=== PATIENT | male | born 1990 | race Caucasian/White ===

== ENCOUNTER 2018-07-22 20:59 | Emergency (ER) | payer OTHER, SELFPAY ==
[2018-07-22 21:00] VITALS: BP 128/72; PULSE 82; RESP 18; TEMP 36.4; O2SAT 97; BMI 24.9
--- NOTE | 2018-07-22 21:26 | ED.ABDPAIN ---
HPI - Abdominal Pain General Chief Complaint: Abdominal Pain Stated Complaint: abd pain, vomiting, diarrhea Time Seen by Provider: 07/22/18 21:26 Source: patient Mode of arrival: ambulatory Limitations: no limitations History of Present Illness HPI narrative: 27-year-old male here for evaluation of approximately 3 days of nausea vomiting and diarrhea. He also states he has had accompanying abdominal pain. No urinary symptoms. Has not tried anything for prior to arrival. No recent antibiotics. 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 and recently traveled home from there but that has been several days ago. No blood in his stool or in the vomit. No fevers. No prior abdominal surgeries Related Data Previous Rx's Medication Instructions Recorded ciprofloxacin HCl 500 mg PO BID 10 Days #20 tab 07/22/18 hydrocodone-acetaminophen [[place]] 1 tab PO Q4-6H PRN #10 tab 07/22/18 metronidazole [Flagyl] 500 mg PO TID 10 Days #30 tab 07/22/18 ondansetron 4 mg PO Q6-8H PRN #10 tab 07/22/18 Allergies Allergy/AdvReac Type Severity Reaction Status Date / Time No Known Drug Allergies Allergy Verified 07/22/18 21:06 Review of Systems Constitutional Denies fever(s) and Denies headache(s) ENT Ears, Nose, Mouth, and Throat: Denies headache(s) Cardiovascular Denies chest pain and Denies dyspnea Respiratory Denies dyspnea Gastrointestinal Gastrointestinal: Reports abdominal pain, Reports diarrhea, Reports nausea and Reports vomiting Genitourinary Denies dysuria Musculoskeletal Denies myalgias and Denies arthralgias Integumentary/Breasts Denies lesions and Denies rash Neurologic Denies headache(s) Hematologic/Lymphatic Comments: Not on anticoagulation [facility] Medical History Healthy adult (Acute) Surgical History No pertinent past surgical history (Acute) Social History Smoking Status: Current every day smoker Exam Initial Vital Signs Initial Vital Signs: Vital Signs Temperature 97.5 F L 07/22/18 21:00 Pulse Rate 82 07/22/18 21:00 Respiratory Rate 18 07/22/18 21:00 Blood Pressure 128/72 07/22/18 21:00 Pulse Oximetry 97 07/22/18 21:00 Const General: cooperative, healthy appearing, comfortable, well developed, well groomed and No acute distress Orientation: alert, awake and oriented x3 HENMT Head: normal to inspection and normocephalic Resp Effort & Inspection: normal respiratory effort Auscultation: clear to auscultation bilaterally Cardio Rate: regular rate Rhythm: regular rhythm GI Inspection: non-distended Palpation: soft, No firm, No guarding and tender (Diffusely tender without rebound or guarding) Back/Spine/Pelvis Back: No CVA tenderness Skin Lesions: no lesions Rashes: no rashes Neuro General: alert, awake and oriented x3 Extrem General: normal to inspection and capillary refill normal Psych Appearance: grossly normal and well kempt Course Orders Ordered: ED Orders 07/22/18 21:38 Complete Blood Count AUTO DIFF Stat Comprehensive Metabolic Panel Stat Lipase Stat 07/22/18 21:39 CT abdomen pelvis w con Stat Discontinued Medications Hydrocodone Bitart/Acetaminophen (Vicodin Prepack) 1 bottle MISC SEEINSTR ONE Stop: 07/22/18 23:38 Last Admin: 07/22/18 23:57 Dose: 1 bottle Ciprofloxacin (Cipro) 500 mg PO NOW ONE Stop: 07/22/18 23:38 Last Admin: 07/22/18 23:56 Dose: 500 mg Hydromorphone HCl (Dilaudid) 1 mg IM Q4H PRN PRN Reason: Pain, Severe (7-10) Last Admin: 07/22/18 22:32 Dose: 1 mg Hydromorphone HCl (Dilaudid) 0.5 mg IV NOW ONE Stop: 07/23/18 00:03 Last Admin: 07/23/18 00:10 Dose: 0.5 mg Sodium Chloride (Normal Saline 0.9%) 1,000 mls @ 1,000 mls/hr IV BOLUS ONE Stop: 07/22/18 22:37 Last Infusion: 07/23/18 00:12 Dose: 0 mls/hr Admin: 07/22/18 21:49 Dose: 1,000 mls/hr Metronidazole (Metronidazole) 500 mg PO NOW ONE Stop: 07/22/18 23:38 Last Admin: 07/22/18 23:57 Dose: 500 mg Morphine Sulfate (Morphine) 4 mg IV NOW ONE Stop: 07/22/18 21:39 Last Admin: 07/22/18 21:49 Dose: 4 mg Ondansetron HCl (Zofran) 4 mg IV NOW ONE Stop: 07/22/18 21:39 Last Admin: 07/22/18 21:49 Dose: 4 mg Ondansetron HCl (Zofran Odt Prepack) 1 bottle MISC SEEINSTR ONE Stop: 07/22/18 23:38 Last Admin: 07/22/18 23:57 Dose: 1 bottle Ondansetron HCl (Zofran) 4 mg IV NOW ONE Stop: 07/22/18 23:53 Last Admin: 07/22/18 23:56 Dose: 4 mg Vital Signs - 8 hr 07/22/18 21:00 07/23/18 00:21 Temperature 97.5 F L 98.2 F Pulse Rate 82 75 Respiratory Rate 18 19 Blood Pressure 128/72 124/75 Pulse Oximetry 97 98 MDM - Abdominal Pain Lab Data Attestation: I reviewed the patient's lab results. Result diagrams: 07/22/18 21:38 07/22/18 21:38 Lab Results 07/22/18 07/22/18 Range/Units 21:38 21:38 WBC 12.4 H (4.5-11.0) X10^3/uL RBC 4.90 (4.5-5.9) X10^6/uL Hgb 15.1 (13.5-17.5) g/dL Hct 44.5 (41-53) % MCV 90.8 (80-100) fL MCH 30.8 (26-34) PG MCHC 33.9 (30-36) % RDW 13.1 (11.6-14.8) % Plt Count 284 (150-400) X10^3/uL Neut % (Auto) 81.0 H (50-75) % Lymph % (Auto) 13.0 L (25-40) % [place] % (Auto) 4.6 (3-14) % Eos % (Auto) 1.1 L (2-4) % Baso % (Auto) 0.3 (0-2) % Neut # (Auto) 99382 H (6891-6313) /uL Sodium 143 (137-145) mmol/L Potassium 4.3 (3.4-5.1) mmol/L Chloride 103 (98-107) mmol/L Carbon Dioxide 28 (22-32) mmol/L BUN 11 (9-20) mg/dL Creatinine 1.00 (0.66-1.25) mg/dL Estimated GFR > 60.0 (>60) mL/min BUN/Creatinine Ratio 11.0 (6-22) Glucose 103 H (70-100) mg/dL Calcium 9.7 (8.4-10.2) mg/dL Total Bilirubin 0.8 (0.2-1.3) mg/dL AST 55 (17-59) IU/L ALT 93 H (21-72) IU/L Alkaline Phosphatase 51 (38-126) U/L Total Protein 8.0 (6.3-8.2) g/dL Albumin 4.8 (3.5-5.0) g/dL Globulin 3.2 (1.7-4.1) g/dL Albumin/Globulin Ratio 1.5 (1.0-2.8) Lipase 103 (23-300) U/L Imaging Data CT scan - abdomen: Radiologist's impression: Colitis involving at least the transverse and descending colon. Slight intrapelvic fluid. Mesenteric adenopathy. Borderline splenomegaly MDM Narrative Medical decision making narrative: Patient is a relatively benign abdominal exam. Certainly not a surgical/acute abdomen. Labs reassuring. CT scan shows a colitis which does fit with his presenting picture. He is tolerating oral intake. Given the fact that he has had symptoms for the past several days and the fact that it is transverse and descending colon will send home with antibiotics. Also sent home with nausea medication. Also sent home with a very short course of pain medication given the discomfort that he was having. Patient was given return precautions. He expressed understanding and agreement with plan. Discharge Plan Departure Patient Disposition: Home Clinical Impression: Colitis Discharge Date/Time: 07/23/18 00:23 Interventions: ED Discharge Assessment Last Done: 07/23/18 00:21 Instructions: DI for Colitis Activity Restrictions/Additional Instructions: I recommend you take all of your medications as directed. You were given her 1st dose of antibiotics here in the emergency department. Return to the emergency department for any new or worsening symptoms Prescriptions: New hydrocodone-acetaminophen [[place]] 5-325 mg tablet 1 tab PO Q4-6H PRN (Reason: pain) Qty: 10 RF: 0 metronidazole [Flagyl] 500 mg tablet 500 mg PO TID 10 Days Qty: 30 RF: 0 ciprofloxacin HCl 500 mg tablet 500 mg PO BID 10 Days Qty: 20 RF: 0 ondansetron 4 mg tablet,disintegrating 4 mg PO Q6-8H PRN (Reason: nausea and vomiting) Qty: 10 RF: 0
--- NOTE | 2018-07-22 21:39 | DI.CT.S_ITS ---
PROCEDURE: CT ABDOMEN PELVIS W CON INDICATIONS: abdominal pain TECHNIQUE: After the administration of intravenous contrast, 5 mm thick sections acquired from the diaphragm to the symphysis. 5 mm coronal and sagittal reformats were acquired. For radiation dose reduction, the following was used: automated exposure control, adjustment of mA and/or kV according to patient size. COMPARISON: None. FINDINGS: Image quality: Excellent. ABDOMEN: Lung bases: Lung bases are clear. Heart size is normal. Solid organs: No focal hepatic mass lesions identified. There is mild focal fatty infiltration in the anterior left hepatic lobe. Gallbladder appears within normal limits without calcified gallstones. Biliary system is non dilated. Pancreas enhances normally. Spleen is normal in size and enhancement. No adrenal nodules. Kidneys demonstrate normal size and enhancement, without hydronephrosis. Peritoneum and bowel: Small bowel loops demonstrate normal wall thickness and caliber. The appendix is normal in appearance. There is mild segmental wall thickening involving the transverse colon as well as milder thickening involving the descending and sigmoid colon. Findings are consistent with a nonspecific colitis. There is a small amount of free fluid in the pelvis. No intraperitoneal free air. Nodes and vessels: No retroperitoneal or mesenteric adenopathy by size criteria. Aorta and inferior vena cava are normal in size. Miscellaneous: No ventral hernias. PELVIS: Genitourinary: Bladder wall thickness is normal. Miscellaneous: No inguinal hernias or adenopathy. Bones: No suspicious bony lesions. No vertebral body compression fractures. IMPRESSION: 1. Segmental wall thickening involving the transverse, descending and sigmoid colon consistent with a nonspecific colitis, likely infectious or inflammatory. 2. Small amount of pelvic free fluid is likely reactive. Dictated by: Andry Santiago M.D. on 07/23/2018 at 9:32 Approved by: Andry Santiago M.D. on 07/23/2018 at 9:44
[2018-07-22 21:48] LABS: Add Manual Diff / Slide Review NO; Basophils Percent Auto 0.3 % (0-2); Eosinophils Percent Auto 1.1 % (2-4); Hematocrit 44.5 % (41-53); Hemoglobin 15.1 g/dL (13.5-17.5); Mean Corpuscular HGB Conc 33.9 % (30-36); Mean Corpuscular Hemoglobin 30.8 PG (26-34); Mean Corpuscular Volume 90.8 fL (80-100); Monocytes Percent Auto 4.6 % (3-14); Neutrophils Absolute Auto 10100 /uL (1500-7000); Platelet Count 284 X10^3/uL (150-400); Red Cell Distribution Width 13.1 % (11.6-14.8); White Blood Cell Count 12.4 X10^3/uL (4.5-11.0)
[2018-07-22] MEDS: MORPHINE 4 MG/ML INJ IV (21:49)
[2018-07-22] MEDS: SODIUM CHLORIDE 0.9% 1,000 ML 1000 ML IV (21:49)
[2018-07-22] MEDS: ONDANSETRON 4 MG/2 ML INJ IV ×2 (21:49→23:56)
[2018-07-22 21:56] LABS: Alanine Aminotransferase 93 IU/L (21-72); Albumin 4.8 g/dL (3.5-5.0); Albumin Globulin Ratio 1.5 (1.0-2.8); Alkaline Phosphatase 51 U/L (38-126); Aspartate Aminotransferase 55 IU/L (17-59); Bilirubin Total 0.8 mg/dL (0.2-1.3); Blood Urea Nitrogen 11 mg/dL (9-20); Calcium 9.7 mg/dL (8.4-10.2); Carbon Dioxide 28 mmol/L (22-32); Chloride 103 mmol/L (98-107); Estimated Glomerular Filt Rate > 60.0 mL/min (>60); Globulin 3.2 g/dL (1.7-4.1); Glucose 103 mg/dL (70-100); HEMOLYSIS 39 (0-50); Lipase 103 U/L (23-300); Potassium 4.3 mmol/L (3.4-5.1); Sodium 143 mmol/L (137-145)
[2018-07-22] MEDS: HYDROMORPHONE 2 MG INJ 1 MG IM (22:32)
[2018-07-22] MEDS: CIPROFLOXACIN 500 MG TABLET PO (23:56)
[2018-07-22] MEDS: ONDANSETRON 4 MG ODT PREPACK 1 BOTTLE MISC (23:57)
[2018-07-22] MEDS: metroNIDAZOLE 250 MG TABLET 500 MG PO (23:57)
[2018-07-22] MEDS: HYDROCODONE/ACET 5/325 PREPACK 1 BOTTLE MISC (23:57)
[2018-07-23] MEDS: HYDROMORPHONE 0.5 MG INJ IV (00:10)
[2018-07-23 00:21] VITALS: BP 124/75; PULSE 75; RESP 19; TEMP 36.8; O2SAT 98
== END 2018-07-23 00:23 | disposition home or self-care (01) ==
PROVIDERS: Emergency Provider Emergency Medicine
DX: K52.9 Noninfective gastroenteritis and colitis, unspecified (principal)
CPT/HCPCS: 36591; 74177; 80053; 83690; 85025; 96361; 96372; 96374; 96375; 96376; 99283; 99285; J1170; J2270; J2405

== ENCOUNTER 2018-07-26 20:30 | Emergency (ER) | payer OTHER, SELFPAY ==
[2018-07-26 20:41] VITALS: BP 144/78; PULSE 71; RESP 14; TEMP 36.5; O2SAT 98; BMI 24.9
--- NOTE | 2018-07-26 20:53 | ED.ABDPAIN ---
HPI - Abdominal Pain General Chief Complaint: Abdominal Pain Stated Complaint: ABD PAIN Time Seen by Provider: 07/26/18 20:35 Source: patient and family Mode of arrival: ambulatory Limitations: no limitations History of Present Illness HPI narrative: 27-year-old male, nonsmoker and otherwise healthy presents with his mother due to ongoing pain after recent diagnosis of colitis. The patient had had nausea, vomiting and diarrhea and presented to our emergency department. He had labs demonstrating a slightly elevated white blood cell count and a CT confirming colitis. He was placed on antibiotics and given a small number of hydrocodone and Zofran. He feels much better when he is able to take pain medicine and he ran out earlier today. Since then his pain has been slowly increasing. He denies fever or shaking chills. He has nausea but denies any ongoing vomiting. He is not dizzy nor weak or lightheaded. He was doing well until he ran out of his pain meds. He is currently on leave from [facility] and plans to fly back on Sunday where he states he has plenty of access to appropriate healthcare providers MD complaint: abdominal pain Onset (ago): day(s) Pain Consistency: constant Location: LLQ Severity: moderate Quality: cramping and aching Radiation: none Migration to: no migration Relieving factors: rest Exacerbating factors: movement Associated symptoms: nausea, vomiting and diarrhea Related Data Previous Rx's Medication Instructions Recorded ciprofloxacin HCl 500 mg PO BID 10 Days #20 tab 07/22/18 hydrocodone-acetaminophen [[place]] 1 tab PO Q4-6H PRN #10 tab 07/22/18 metronidazole [Flagyl] 500 mg PO TID 10 Days #30 tab 07/22/18 ondansetron 4 mg PO Q6-8H PRN #10 tab 07/22/18 hydrocodone-acetaminophen 1 tab PO Q4-6H PRN #14 tab 07/26/18 ondansetron 4 mg PO TID-QID PRN #10 tab 07/26/18 Allergies Allergy/AdvReac Type Severity Reaction Status Date / Time No Known Drug Allergies Allergy Verified 07/22/18 21:06 Review of Systems Constitutional Denies chills, Denies fever(s), Denies lethargy and Denies weakness Eyes Denies change in vision, Denies eye discharge, Denies irritation and Denies loss of vision ENT Ears, Nose, Mouth, and Throat: Denies change in voice, Denies neck pain and Denies sore throat Cardiovascular Denies chest pain, Denies irregular heart rhythm, Denies lightheadedness, Denies palpitations, Denies dyspnea, Denies dyspnea on exertion and Denies orthopnea Respiratory Denies cough, Denies dyspnea, Denies dyspnea on exertion and Denies wheezing Gastrointestinal Gastrointestinal: Reports abdominal pain, Denies change in bowel habits, Denies diarrhea, Reports nausea and Denies vomiting Genitourinary Denies hematuria, Denies flank pain, Denies urinary incontinence and Denies urinary urgency Musculoskeletal Denies neck pain Integumentary/Breasts Denies pruritus, Denies erythema, Denies rash and Denies wounds Neurologic Denies confusion, Denies loss of vision and Denies weakness Psychiatric Denies anxiety, Denies confusion, Denies depression, Denies homicidal ideation and Denies suicidal ideation Endocrine Denies palpitations Hematologic/Lymphatic Denies easy bruising Allergic/Immunologic Denies wheezing [facility] Medical History Healthy adult (Acute) Surgical History No pertinent past surgical history (Acute) Social History Smoking Status: Current every day smoker Exam Narrative Exam Narrative: GEN: AOx3 and in mild distress EYES: Pupils are equal, round, and reactive to light and accommodation. Extraoccular muscles are intact bilaterally. There is no subconjunctival hemorrhage or exudate. CHEST: Lungs are clear to auscultation bilaterally and free of wheezes, rales, or rhonchi. Heart rate is regular rhythm, there are no murmurs, clicks, rubs, or gallops. There is no chest wall tenderness. ABD: Abdomen is soft and mildly tender in the left lower quadrant. There is no guarding or rebound. Bowel sounds are normal in all 4 quadrants. There is no mass or organomegaly. EXT: Full painless ROM of all extremities with no loss of sensation or strength. SKIN: Warm, pink, and dry. No erythema or rash Initial Vital Signs Initial Vital Signs: Vital Signs Temperature 97.7 F 07/26/18 20:41 Pulse Rate 71 07/26/18 20:41 Respiratory Rate 14 07/26/18 20:41 Blood Pressure 144/78 H 07/26/18 20:41 Pulse Oximetry 98 07/26/18 20:41 Course Orders Ordered: Discontinued Medications Hydrocodone Bitart/Acetaminophen (Vicodin Prepack) 1 bottle MISC SEEINSTR ONE Stop: 07/26/18 21:11 Last Admin: 07/26/18 21:21 Dose: 1 bottle Vital Signs - 8 hr 07/26/18 20:41 Temperature 97.7 F Pulse Rate 71 Respiratory Rate 14 Blood Pressure 144/78 H Pulse Oximetry 98 MDM - Abdominal Pain Differential Diagnosis Differential diagnosis: Likely abdominal pain, calculus of kidney, constipation, gastroenteritis and small bowel obstruction Medical Records Attestation: I reviewed the patient's medical records. MDM Narrative Medical decision making narrative: Multiple etiologies for patient's symptoms considered including: [ Flare due to lack of access to pain meds, abscess formation, perforation, thought less likely given stable vitals, and overall well-appearing patient. Colitis] Patient's symptoms improved or duration of stay with above-stated therapies. We did discuss repeat labs and imaging but patient states he was feeling quite well until ran out of pain meds. He understands he may return at any point for E repeat, more thorough evaluation Findings and discharge diagnosis discussed with patient/family followed by verbalization of understanding Return precautions discussed with patient/family whom verbalize understanding. Discharge Plan Departure Patient Disposition: Home Clinical Impression: Colitis Discharge Date/Time: 07/26/18 21:25 Interventions: ED Discharge Assessment Last Done: 07/26/18 21:24 Instructions: DI for Colitis Activity Restrictions/Additional Instructions: *You have been diagnosed with [ colitis] *What to do: *Take medications as directed including over the counter probiotics *Follow up with your primary care provider upon return to [facility], calling/emailing ahead of time may help speed the process *Return to ER if you should have any new, worsening or concerning symptoms, such as [ fever >101F, persistent vomiting despite use of meds, worsening pain despite use of pain meds, shaking chills, or other bothersome symptoms] Prescriptions: New hydrocodone-acetaminophen 5-325 mg tablet 1 tab PO Q4-6H PRN (Reason: pain) Qty: 14 RF: 0 ondansetron 4 mg tablet,disintegrating 4 mg PO TID-QID PRN (Reason: nausea and vomiting) Qty: 10 RF: 0 No Action hydrocodone-acetaminophen [[place]] 5-325 mg tablet 1 tab PO Q4-6H PRN (Reason: pain) Qty: 10 RF: 0 metronidazole [Flagyl] 500 mg tablet 500 mg PO TID 10 Days Qty: 30 RF: 0 ciprofloxacin HCl 500 mg tablet 500 mg PO BID 10 Days Qty: 20 RF: 0 ondansetron 4 mg tablet,disintegrating 4 mg PO Q6-8H PRN (Reason: nausea and vomiting) Qty: 10 RF: 0
[2018-07-26] MEDS: HYDROCODONE/ACET 5/325 PREPACK 1 BOTTLE MISC (21:21)
--- NOTE | 2018-07-27 03:10 | ED_ITS ---
HPI - Abdominal Pain General Chief Complaint: Abdominal Pain Stated Complaint: ABD PAIN Time Seen by Provider: 07/26/18 20:35 Source: patient and family Mode of arrival: ambulatory Limitations: no limitations History of Present Illness HPI narrative: 27-year-old male, nonsmoker and otherwise healthy presents with his mother due to ongoing pain after recent diagnosis of colitis. The patient had had nausea, vomiting and diarrhea and presented to our emergency department. He had labs demonstrating a slightly elevated white blood cell count and a CT confirming colitis. He was placed on antibiotics and given a small number of hydrocodone and Zofran. He feels much better when he is able to take pain medicine and he ran out earlier today. Since then his pain has been slowly increasing. He denies fever or shaking chills. He has nausea but denies any ongoing vomiting. He is not dizzy nor weak or lightheaded. He was doing well until he ran out of his pain meds. He is currently on leave from [facility] and plans to fly back on Sunday where he states he has plenty of access to appropriate healthcare providers MD complaint: abdominal pain Onset (ago): day(s) Pain Consistency: constant Location: LLQ Severity: moderate Quality: cramping and aching Radiation: none Migration to: no migration Relieving factors: rest Exacerbating factors: movement Associated symptoms: nausea, vomiting and diarrhea Related Data Previous Rx's Medication Instructions Recorded ciprofloxacin HCl 500 mg PO BID 10 Days #20 tab 07/22/18 hydrocodone-acetaminophen [[place]] 1 tab PO Q4-6H PRN #10 tab 07/22/18 metronidazole [Flagyl] 500 mg PO TID 10 Days #30 tab 07/22/18 ondansetron 4 mg PO Q6-8H PRN #10 tab 07/22/18 hydrocodone-acetaminophen 1 tab PO Q4-6H PRN #14 tab 07/26/18 ondansetron 4 mg PO TID-QID PRN #10 tab 07/26/18 Allergies Allergy/AdvReac Type Severity Reaction Status Date / Time No Known Drug Allergies Allergy Verified 07/22/18 21:06 Review of Systems Constitutional Denies chills, Denies fever(s), Denies lethargy and Denies weakness Eyes Denies change in vision, Denies eye discharge, Denies irritation and Denies loss of vision ENT Ears, Nose, Mouth, and Throat: Denies change in voice, Denies neck pain and Denies sore throat Cardiovascular Denies chest pain, Denies irregular heart rhythm, Denies lightheadedness, Denies palpitations, Denies dyspnea, Denies dyspnea on exertion and Denies orthopnea Respiratory Denies cough, Denies dyspnea, Denies dyspnea on exertion and Denies wheezing Gastrointestinal Gastrointestinal: Reports abdominal pain, Denies change in bowel habits, Denies diarrhea, Reports nausea and Denies vomiting Genitourinary Denies hematuria, Denies flank pain, Denies urinary incontinence and Denies urinary urgency Musculoskeletal Denies neck pain Integumentary/Breasts Denies pruritus, Denies erythema, Denies rash and Denies wounds Neurologic Denies confusion, Denies loss of vision and Denies weakness Psychiatric Denies anxiety, Denies confusion, Denies depression, Denies homicidal ideation and Denies suicidal ideation Endocrine Denies palpitations Hematologic/Lymphatic Denies easy bruising Allergic/Immunologic Denies wheezing [facility] Medical History Healthy adult (Acute) Surgical History No pertinent past surgical history (Acute) Social History Smoking Status: Current every day smoker Exam Narrative Exam Narrative: GEN: AOx3 and in mild distress EYES: Pupils are equal, round, and reactive to light and accommodation. Extraoccular muscles are intact bilaterally. There is no subconjunctival hemorrhage or exudate. CHEST: Lungs are clear to auscultation bilaterally and free of wheezes, rales, or rhonchi. Heart rate is regular rhythm, there are no murmurs, clicks, rubs, or gallops. There is no chest wall tenderness. ABD: Abdomen is soft and mildly tender in the left lower quadrant. There is no guarding or rebound. Bowel sounds are normal in all 4 quadrants. There is no mass or organomegaly. EXT: Full painless ROM of all extremities with no loss of sensation or strength. SKIN: Warm, pink, and dry. No erythema or rash Initial Vital Signs Initial Vital Signs: Vital Signs Temperature 97.7 F 07/26/18 20:41 Pulse Rate 71 07/26/18 20:41 Respiratory Rate 14 07/26/18 20:41 Blood Pressure 144/78 H 07/26/18 20:41 Pulse Oximetry 98 07/26/18 20:41 Course Orders Ordered: Discontinued Medications Hydrocodone Bitart/Acetaminophen (Vicodin Prepack) 1 bottle MISC SEEINSTR ONE Stop: 07/26/18 21:11 Last Admin: 07/26/18 21:21 Dose: 1 bottle Vital Signs - 8 hr 07/26/18 20:41 Temperature 97.7 F Pulse Rate 71 Respiratory Rate 14 Blood Pressure 144/78 H Pulse Oximetry 98 MDM - Abdominal Pain Differential Diagnosis Differential diagnosis: Likely abdominal pain, calculus of kidney, constipation , gastroenteritis and small bowel obstruction Medical Records Attestation: I reviewed the patient's medical records. MDM Narrative Medical decision making narrative: Multiple etiologies for patient's symptoms considered including: [ Flare due to lack of access to pain meds, abscess formation, perforation, thought less likely given stable vitals, and overall well-appearing patient. Colitis] Patient's symptoms improved or duration of stay with above-stated therapies. We did discuss repeat labs and imaging but patient states he was feeling quite well until ran out of pain meds. He understands he may return at any point for E repeat, more thorough evaluation Findings and discharge diagnosis discussed with patient/family followed by verbalization of understanding Return precautions discussed with patient/family whom verbalize understanding. Discharge Plan Departure Patient Disposition: Home Clinical Impression: Colitis Discharge Date/Time: 07/26/18 21:25 Interventions: ED Discharge Assessment Last Done: 07/26/18 21:24 Instructions: DI for Colitis Activity Restrictions/Additional Instructions: *You have been diagnosed with [ colitis] *What to do: *Take medications as directed including over the counter probiotics *Follow up with your primary care provider upon return to [facility], calling/emailing ahead of time may help speed the process *Return to ER if you should have any new, worsening or concerning symptoms , such as [ fever >101F, persistent vomiting despite use of meds, worsening pain despite use of pain meds, shaking chills, or other bothersome symptoms] Prescriptions: New hydrocodone-acetaminophen 5-325 mg tablet 1 tab PO Q4-6H PRN (Reason: pain) Qty: 14 RF: 0 ondansetron 4 mg tablet,disintegrating 4 mg PO TID-QID PRN (Reason: nausea and vomiting) Qty: 10 RF: 0 No Action hydrocodone-acetaminophen [[place]] 5-325 mg tablet 1 tab PO Q4-6H PRN (Reason: pain) Qty: 10 RF: 0 metronidazole [Flagyl] 500 mg tablet 500 mg PO TID 10 Days Qty: 30 RF: 0 ciprofloxacin HCl 500 mg tablet 500 mg PO BID 10 Days Qty: 20 RF: 0 ondansetron 4 mg tablet,disintegrating 4 mg PO Q6-8H PRN (Reason: nausea and vomiting) Qty: 10 RF: 0
== END 2018-07-26 21:25 | disposition home or self-care (01) ==
PROVIDERS: Emergency Provider Emergency Medicine
DX: K52.9 Noninfective gastroenteritis and colitis, unspecified (principal)
CPT/HCPCS: 99282; 99283

== ENCOUNTER 2018-07-27 07:32 | Emergency (ER) | payer OTHER, SELFPAY ==
[2018-07-27 07:41] VITALS: BP 150/76; PULSE 77; RESP 13; TEMP 36.6; O2SAT 98
--- NOTE | 2018-07-27 07:51 | ED.ABDPAIN ---
HPI - Abdominal Pain General Chief Complaint: Abdominal Pain Stated Complaint: ABDOMINAL PAIN Time Seen by Provider: 07/27/18 07:44 Source: patient Mode of arrival: ambulatory Limitations: no limitations History of Present Illness HPI narrative: Patient is a 27-year-old male presenting with abdominal pain. He was seen evaluated here on 07/22/2018 where his blood work and a CT diagnosed with colitis. He was placed on Cipro and Flagyl. He was doing okay until last evening where his pain got worse. He again came to the emergency department was given pain medication. He has been unable to keep his antibiotics down. his pain has gotten significantly worse. 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 However his pain is quite severe. He has had shaking sweats but mostly thought due to pain. MD complaint: abdominal pain Related Data Previous Rx's Medication Instructions Recorded ciprofloxacin HCl 500 mg PO BID 10 Days #20 tab 07/22/18 hydrocodone-acetaminophen [[place]] 1 tab PO Q4-6H PRN #10 tab 07/22/18 metronidazole [Flagyl] 500 mg PO TID 10 Days #30 tab 07/22/18 ondansetron 4 mg PO Q6-8H PRN #10 tab 07/22/18 hydrocodone-acetaminophen 1 tab PO Q4-6H PRN #14 tab 07/26/18 ondansetron 4 mg PO TID-QID PRN #10 tab 07/26/18 meloxicam [Mobic] 7.5 mg PO DAILY #30 tab 07/27/18 ondansetron 4 mg PO Q6-8H PRN #14 tab 07/27/18 Allergies Allergy/AdvReac Type Severity Reaction Status Date / Time No Known Drug Allergies Allergy Verified 07/22/18 21:06 Review of Systems Review of Systems GENERAL: Denies chills, fatigue, malaise, fever, sweats, travel HEENT: Denies sinus pain, ear pain, sore throat, difficulty swallowing, neck pain RESPIRATORY: Denies dyspnea, cough, wheezing, hemoptysis, sputum. CARDIOVASCULAR: Denies chest pain, palpitations, orthopnea, edema GASTROINTESTINAL: See HPI : Denies dysuria, frequency, incontinence, hematuria, urinary retention, flank pain. MUSCULOSKELETAL: Denies weakness, joint pain, or bony pain SKIN: No rash, no erythema, no pruritus NEUROLOGIC: Denies weakness, dizziness, headache, numbness, change in speech, confusion PSYCHIATRIC: No concerning psychosocial issues. 12 point review of systems is negative except for those stated above and HPI [facility] Social History Smoking Status: Current every day smoker Exam Initial Vital Signs Initial Vital Signs: Vital Signs Temperature 97.9 F 07/27/18 07:41 Pulse Rate 77 07/27/18 07:41 Respiratory Rate 13 07/27/18 07:41 Blood Pressure 150/76 H 07/27/18 07:41 Pulse Oximetry 98 07/27/18 07:41 GENERAL: Young male hunched over on gurney appears in pain HEENT: Head atraumatic,EOMI, pupils reactive, CARDIOVASCULAR: Regular rate and rhythm without murmurs, rubs or gallops. RESPIRATORY: Breath sounds equal bilaterally, no wheezes rales or rhonchi. ABDOMEN: Soft, EXTREMITIES: Normal range of motion, no clubbing or edema. Neurovascularly intact NEUROLOGICAL: Alert and oriented x4.Normal gait and speech. Cranial nerves II through XII grossly intact. SKIN: Warm, dry, no laceration, no petechiae, no rashes or lesions. Course Orders Ordered: ED Orders 07/27/18 07:55 Complete Blood Count AUTO DIFF Stat Comprehensive Metabolic Panel Stat Lipase Stat 07/27/18 08:30 US abdomen complete Stat 07/27/18 08:40 CT abdomen pelvis w con Stat Discontinued Medications Hydromorphone HCl (Dilaudid) 1 mg IV NOW ONE Stop: 07/27/18 07:53 Last Admin: 07/27/18 08:04 Dose: 1 mg Hydromorphone HCl (Dilaudid) 0.5 mg IV NOW ONE Stop: 07/27/18 08:51 Last Admin: 07/27/18 08:51 Dose: 0.5 mg Hydromorphone HCl (Dilaudid) 0.5 mg IV NOW ONE Stop: 07/27/18 09:00 Last Admin: 07/27/18 09:19 Dose: 0.5 mg Hydromorphone HCl (Dilaudid) 0.5 mg IV NOW ONE Stop: 07/27/18 09:17 Sodium Chloride (Normal Saline 0.9%) 1,000 mls @ 1,000 mls/hr IV CONT MARI Last Infusion: 07/27/18 10:34 Dose: 0 mls/hr Admin: 07/27/18 08:02 Dose: 1,000 mls/hr Ketorolac Tromethamine (Toradol) 30 mg IV NOW ONE Stop: 07/27/18 09:58 Last Admin: 07/27/18 10:19 Dose: 30 mg Ondansetron HCl (Zofran) 4 mg IV NOW ONE Stop: 07/27/18 07:50 Last Admin: 07/27/18 08:02 Dose: 4 mg Ondansetron HCl (Zofran) 4 mg IV NOW ONE Stop: 07/27/18 09:17 Last Admin: 07/27/18 09:18 Dose: 4 mg Pantoprazole Sodium (Protonix) 40 mg IV NOW ONE Stop: 07/27/18 07:50 Last Admin: 07/27/18 08:02 Dose: 40 mg Vital Signs - 8 hr 07/27/18 07:41 07/27/18 09:00 07/27/18 10:22 Temperature 97.9 F Pulse Rate 77 69 66 Respiratory Rate 13 Blood Pressure 150/76 H Blood Pressure [Right Arm] 132/71 127/64 Pulse Oximetry 98 100 99 07/27/18 10:31 Temperature 97.2 F L Pulse Rate 72 Respiratory Rate 12 Blood Pressure 127/64 Blood Pressure [Right Arm] Pulse Oximetry 99 MDM - Abdominal Pain Medical Records Attestation: I reviewed the patient's medical records. Lab Data Attestation: I reviewed the patient's lab results. Result diagrams: 07/27/18 07:55 07/27/18 07:55 Lab Results 07/27/18 07/27/18 Range/Units 07:55 07:55 WBC 8.0 (4.5-11.0) X10^3/uL RBC 5.11 (4.5-5.9) X10^6/uL Hgb 16.2 (13.5-17.5) g/dL Hct 45.5 (41-53) % MCV 89.1 (80-100) fL MCH 31.7 (26-34) PG MCHC 35.6 (30-36) % RDW 12.7 (11.6-14.8) % Plt Count 268 (150-400) X10^3/uL Neut % (Auto) 68.1 (50-75) % Lymph % (Auto) 23.3 L (25-40) % Carbon % (Auto) 6.1 (3-14) % Eos % (Auto) 1.7 L (2-4) % Baso % (Auto) 0.8 (0-2) % Neut # (Auto) 5400 (1311-9603) /uL Lymph # (Auto) 1900 (3033-6142) /uL Carbon # (Auto) 500 (0-900) /uL Eos # (Auto) 100 (0-450) /uL Baso # (Auto) 100 (0-100) /uL Sodium 140 (137-145) mmol/L Potassium 4.0 (3.4-5.1) mmol/L Chloride 102 (98-107) mmol/L Carbon Dioxide 22 (22-32) mmol/L BUN 14 (9-20) mg/dL Creatinine 1.00 (0.66-1.25) mg/dL Estimated GFR > 60.0 (>60) mL/min BUN/Creatinine Ratio 14.0 (6-22) Glucose 91 (70-100) mg/dL Calcium 9.9 (8.4-10.2) mg/dL Total Bilirubin 0.7 (0.2-1.3) mg/dL AST 71 H (17-59) IU/L ALT 117 H (21-72) IU/L Alkaline Phosphatase 59 (38-126) U/L Total Protein 7.8 (6.3-8.2) g/dL Albumin 4.9 (3.5-5.0) g/dL Globulin 2.9 (1.7-4.1) g/dL Albumin/Globulin Ratio 1.7 (1.0-2.8) Lipase 64 (23-300) U/L Imaging Data US - abdomen: Radiologist's impression: PROCEDURE: US ABDOMEN COMPLETE INDICATIONS: RUQ ELEVATED LIVER ENZYMES TECHNIQUE: Real-time scanning was performed of the abdominal and retroperitoneal organs, with image documentation. COMPARISON: None. FINDINGS: Liver: Liver is normal in size and homogeneous in echotexture. Gallbladder: Gallbladder is sonographically normal. No gallstones. No gallbladder wall thickening. No pericholecystic fluid. No sonographic Cates sign. Biliary ducts: Intrahepatic bile ducts are non-dilated. Extrahepatic bile duct caliber measures 5.0 mm. Normal is 6-7 mm or less in diameter, or 10 mm or less post-cholecystectomy. Pancreas: Visualized portions of the pancreas are sonographically normal. Spleen: Spleen is mildly enlarged measuring 14.7 cm with volume of 513 cubic centimeters (120-480 normal). No focal mass lesions identified. Kidneys: Kidneys are normal in size and echotexture. Right kidney measures 11.3 cm long; left kidney measures 11.5 cm long. No hydronephrosis or nephrolithiasis. No solid masses. Aorta: Visualized aorta is normal in caliber at less than 3 cm. Iliacs: Proximal common iliac arteries are normal in caliber at less than 2.5 cm. IVC: Intrahepatic inferior vena cava is patent. Miscellaneous: No free abdominal fluid. IMPRESSION: 1. Liver is sonographically normal. 2. No cholelithiasis or sonographic evidence of cholecystitis. 3. Mild splenomegaly. Dictated by: Kallie Patrick MD, PhD on 07/27/2018 at 9:57 CT scan - abdomen: Radiologist's impression: PROCEDURE: CT ABDOMEN PELVIS W CON INDICATIONS: worsening abdominal pain colitis on 07/22 TECHNIQUE: After the administration of intravenous contrast, 5 mm thick sections acquired from the diaphragm to the symphysis. 5 mm coronal and sagittal reformats were acquired. For radiation dose reduction, the following was used: automated exposure control, adjustment of mA and/or kV according to patient size. COMPARISON: [facility], CT, CT ABDOMEN PELVIS W CON, 07/22/2018, 21:50. FINDINGS: Image quality: Excellent. ABDOMEN: Lung bases: Lung bases are clear. Heart size is normal. Solid organs: Liver is normal in size and enhancement. Gallbladder is within normal limits. Biliary system is non dilated. Pancreas enhances normally. Spleen is normal in size and enhancement. No adrenal nodules. Kidneys demonstrate normal size and enhancement, without hydronephrosis. Peritoneum and bowel: Circumferential wall thickening involving the transverse colon, descending colon and proximal sigmoid colon not significantly changed compared to 07/22/18. Trace free fluid in the lower pelvis is stable. No free air. The appendix is normal. Nodes and vessels: No retroperitoneal or mesenteric adenopathy by size criteria. Aorta and inferior vena cava are normal in size. Miscellaneous: No ventral hernias. PELVIS: Genitourinary: Bladder wall thickness is normal. Miscellaneous: No inguinal hernias or adenopathy. Bones: No suspicious bony lesions. No vertebral body compression fractures. IMPRESSION: 1. Circumferential wall thickening involving the transverse, descending and proximal sigmoid colon is not significantly changed compared to 07/22/2018. Finding remains consistent with nonspecific colitis. 2. Trace free fluid in lower pelvis is unchanged. 3. No free intraperitoneal air. 4. No dilated loops of bowel. Dictated by: Kallie Patrick MD, PhD on 07/27/2018 at 9:38 MDM Narrative Medical decision making narrative: Liver enzymes are noted to be slightly elevated. He still has quite a bit of epigastric pain minimal right upper quadrant pain. It normal bilirubin. He still has severe pain after Dilaudid. His will repeat CT and check abdominal ultrasound. Patient's CT is unchanged from previously. Ultrasound is normal. No leukocytosis. At this time recommend patient take anti-inflammatories along with finishing his antibiotics as prescribed. I will give him Zofran to help with the nausea and take his medications. Discharge Plan Departure Patient Disposition: Home Clinical Impression: Colitis Discharge Date/Time: 07/27/18 10:34 Interventions: ED Discharge Assessment Last Done: 07/27/18 10:31 Instructions: DI for Colitis Activity Restrictions/Additional Instructions: *You have been diagnosed with colitis *What to do: Blood work does show some mild elevation of liver enzymes this just needs to be rechecked as when her symptoms have improved. CT scan does not show any complication but you do still have some thickening and inflammation of urine test *Continue to take medications as directed Finish and take antibiotics as previously prescribed Zofran every 4-6 hours if needed for nausea or vomiting Mobic 7.5 mg once a day if needed for pain this is anti inflammatory-do not take with Motrin, Aleve, ibuprofen, Advil, naproxen or other anti-inflammatory *Follow up with your primary care provider in 2-3 days *Return to ER if you should have fever, inability take antibiotics or any new, worsening or concerning symptoms Prescriptions: New ondansetron 4 mg tablet,disintegrating 4 mg PO Q6-8H PRN (Reason: nausea and vomiting) Qty: 14 RF: 0 meloxicam [Mobic] 7.5 mg tablet 7.5 mg PO DAILY Qty: 30 RF: 0 No Action hydrocodone-acetaminophen [[place]] 5-325 mg tablet 1 tab PO Q4-6H PRN (Reason: pain) Qty: 10 RF: 0 metronidazole [Flagyl] 500 mg tablet 500 mg PO TID 10 Days Qty: 30 RF: 0 ciprofloxacin HCl 500 mg tablet 500 mg PO BID 10 Days Qty: 20 RF: 0 ondansetron 4 mg tablet,disintegrating 4 mg PO Q6-8H PRN (Reason: nausea and vomiting) Qty: 10 RF: 0 hydrocodone-acetaminophen 5-325 mg tablet 1 tab PO Q4-6H PRN (Reason: pain) Qty: 14 RF: 0 ondansetron 4 mg tablet,disintegrating 4 mg PO TID-QID PRN (Reason: nausea and vomiting) Qty: 10 RF: 0 Stand Alone Forms: Work Release Note
[2018-07-27] MEDS: ONDANSETRON 4 MG/2 ML INJ IV ×2 (08:02→09:18)
[2018-07-27] MEDS: SODIUM CHLORIDE 0.9% 1,000 ML 1000 ML IV (08:02)
[2018-07-27] MEDS: PANTOPRAZOLE 40 MG VIAL IV (08:02)
[2018-07-27 08:04] LABS: Add Manual Diff / Slide Review NO; Basophils Absolute Auto 100 /uL (0-100); Basophils Percent Auto 0.8 % (0-2); Eosinophils Absolute Auto 100 /uL (0-450); Eosinophils Percent Auto 1.7 % (2-4); Hematocrit 45.5 % (41-53); Hemoglobin 16.2 g/dL (13.5-17.5); Lymphocytes Absolute Auto 1900 /uL (1100-4500); Lymphocytes Percent Auto 23.3 % (25-40); Mean Corpuscular HGB Conc 35.6 % (30-36); Mean Corpuscular Hemoglobin 31.7 PG (26-34); Mean Corpuscular Volume 89.1 fL (80-100); Monocytes Absolute Auto 500 /uL (0-900); Monocytes Percent Auto 6.1 % (3-14); Neutrophils Absolute Auto 5400 /uL (1500-7000); Neutrophils Percent Auto 68.1 % (50-75); Platelet Count 268 X10^3/uL (150-400); Red Blood Cell Count 5.11 X10^6/uL (4.5-5.9); Red Cell Distribution Width 12.7 % (11.6-14.8)
[2018-07-27] MEDS: HYDROMORPHONE 1 MG INJ IV (08:04)
[2018-07-27 08:15] LABS: Alanine Aminotransferase 117 IU/L (21-72); Albumin 4.9 g/dL (3.5-5.0); Albumin Globulin Ratio 1.7 (1.0-2.8); Alkaline Phosphatase 59 U/L (38-126); Aspartate Aminotransferase 71 IU/L (17-59); Bilirubin Total 0.7 mg/dL (0.2-1.3); Blood Urea Nitrogen 14 mg/dL (9-20); Calcium 9.9 mg/dL (8.4-10.2); Carbon Dioxide 22 mmol/L (22-32); Chloride 102 mmol/L (98-107); Estimated Glomerular Filt Rate > 60.0 mL/min (>60); Globulin 2.9 g/dL (1.7-4.1); Glucose 91 mg/dL (70-100); HEMOLYSIS < 15 (0-50); Lipase 64 U/L (23-300); Sodium 140 mmol/L (137-145); Total Protein 7.8 g/dL (6.3-8.2)
--- NOTE | 2018-07-27 08:30 | DI.US.S_ITS ---
PROCEDURE: US ABDOMEN COMPLETE INDICATIONS: RUQ ELEVATED LIVER ENZYMES TECHNIQUE: Real-time scanning was performed of the abdominal and retroperitoneal organs, with image documentation. COMPARISON: None. FINDINGS: Liver: Liver is normal in size and homogeneous in echotexture. Gallbladder: Gallbladder is sonographically normal. No gallstones. No gallbladder wall thickening. No pericholecystic fluid. No sonographic Cates sign. Biliary ducts: Intrahepatic bile ducts are non-dilated. Extrahepatic bile duct caliber measures 5.0 mm. Normal is 6-7 mm or less in diameter, or 10 mm or less post-cholecystectomy. Pancreas: Visualized portions of the pancreas are sonographically normal. Spleen: Spleen is mildly enlarged measuring 14.7 cm with volume of 513 cubic centimeters (120-480 normal). No focal mass lesions identified. Kidneys: Kidneys are normal in size and echotexture. Right kidney measures 11.3 cm long; left kidney measures 11.5 cm long. No hydronephrosis or nephrolithiasis. No solid masses. Aorta: Visualized aorta is normal in caliber at less than 3 cm. Iliacs: Proximal common iliac arteries are normal in caliber at less than 2.5 cm. IVC: Intrahepatic inferior vena cava is patent. Miscellaneous: No free abdominal fluid. IMPRESSION: 1. Liver is sonographically normal. 2. No cholelithiasis or sonographic evidence of cholecystitis. 3. Mild splenomegaly. Dictated by: Kallie Patrick MD, PhD on 07/27/2018 at 9:57 Approved by: Kallie Patrick MD, PhD on 07/27/2018 at 9:59
--- NOTE | 2018-07-27 08:40 | DI.CT.S_ITS ---
PROCEDURE: CT ABDOMEN PELVIS W CON INDICATIONS: worsening abdominal pain colitis on 07/22 TECHNIQUE: After the administration of intravenous contrast, 5 mm thick sections acquired from the diaphragm to the symphysis. 5 mm coronal and sagittal reformats were acquired. For radiation dose reduction, the following was used: automated exposure control, adjustment of mA and/or kV according to patient size. COMPARISON: [facility], CT, CT ABDOMEN PELVIS W CON, 07/22/2018, 21:50. FINDINGS: Image quality: Excellent. ABDOMEN: Lung bases: Lung bases are clear. Heart size is normal. Solid organs: Liver is normal in size and enhancement. Gallbladder is within normal limits. Biliary system is non dilated. Pancreas enhances normally. Spleen is normal in size and enhancement. No adrenal nodules. Kidneys demonstrate normal size and enhancement, without hydronephrosis. Peritoneum and bowel: Circumferential wall thickening involving the transverse colon, descending colon and proximal sigmoid colon not significantly changed compared to 07/22/18. Trace free fluid in the lower pelvis is stable. No free air. The appendix is normal. Nodes and vessels: No retroperitoneal or mesenteric adenopathy by size criteria. Aorta and inferior vena cava are normal in size. Miscellaneous: No ventral hernias. PELVIS: Genitourinary: Bladder wall thickness is normal. Miscellaneous: No inguinal hernias or adenopathy. Bones: No suspicious bony lesions. No vertebral body compression fractures. IMPRESSION: 1. Circumferential wall thickening involving the transverse, descending and proximal sigmoid colon is not significantly changed compared to 07/22/2018. Finding remains consistent with nonspecific colitis. 2. Trace free fluid in lower pelvis is unchanged. 3. No free intraperitoneal air. 4. No dilated loops of bowel. Dictated by: Kallie Patrick MD, PhD on 07/27/2018 at 9:38 Approved by: Kallie Patrick MD, PhD on 07/27/2018 at 9:43
[2018-07-27] MEDS: HYDROMORPHONE 1 MG INJ 0.5 MG IV ×2 (08:51→09:19)
[2018-07-27 09:00] VITALS: BP 132/71; PULSE 69; O2SAT 100
--- NOTE | 2018-07-27 09:26 | PC.NURSE ---
told md about pain and nausea, went into give rx, pt on cell phone texting and as I came in talked to me and laughing with conversation.
[2018-07-27] MEDS: KETOROLAC 60 MG/2 ML VIAL 30 MG IV (10:19)
[2018-07-27 10:22] VITALS: BP 127/64; PULSE 66; O2SAT 99
[2018-07-27 10:31] VITALS: BP 127/64; PULSE 72; RESP 12; TEMP 36.2; O2SAT 99
== END 2018-07-27 10:34 | disposition home or self-care (01) ==
PROVIDERS: Emergency Provider Emergency Medicine
DX: K52.9 Noninfective gastroenteritis and colitis, unspecified (principal)
CPT/HCPCS: 36591; 74177; 76700; 80053; 83690; 85025; 96361; 96374; 96375; 96376; 99283; 99285; C9113; J1170; J1885; J2405

== ENCOUNTER 2018-07-28 09:28 | Emergency (ER) | payer OTHER, SELFPAY ==
[2018-07-28 09:39] VITALS: BP 139/69; PULSE 79; RESP 18; TEMP 36.6; O2SAT 100; BMI 24.9
--- NOTE | 2018-07-28 10:13 | ED.ABDPAIN ---
HPI - Abdominal Pain General Chief Complaint: Abdominal Pain Stated Complaint: abd pain/nausea Time Seen by Provider: 07/28/18 10:12 Source: patient and old records reviewed Mode of arrival: ambulatory Limitations: no limitations History of Present Illness HPI narrative: This is a 27-year-old male who comes to the emergency department with complaint of abdominal pain. Patient states that he started having discomfort on Sunday and was seen the following day here in the emergency department. He was diagnosed with colitis. He has been taking Flagyl and Cipro without any improvement in his symptoms. Patient has not had fevers but he has had sweats and chills occasionally. He states that the pain has not been improving. He points to the center of his upper abdomen Um and a horizontally across particularly to the left. Patient states that the location of pain has not changed. Patient has continued to have vomiting and states that he threw up his morning medications. He has been trying Zofran ODT and states that he will still throw up 20 30 min after the Zofran. He has not been drinking any alcohol with the Flagyl. Patient had a normal bowel movement today and denies any black or blood in his stool or in his emesis. Patient has not had similar symptoms in the past. He does not have any family history of ulcerative colitis or Crohn's, patient denies any family history of autoimmune diseases. He states many family members have had gallbladder disease. Patient is in the , he was recently in [place] and is delaying his return second to this illness. Related Data Previous Rx's Medication Instructions Recorded ciprofloxacin HCl 500 mg PO BID 10 Days #20 tab 07/22/18 hydrocodone-acetaminophen [[place]] 1 tab PO Q4-6H PRN #10 tab 07/22/18 metronidazole [Flagyl] 500 mg PO TID 10 Days #30 tab 07/22/18 ondansetron 4 mg PO Q6-8H PRN #10 tab 07/22/18 hydrocodone-acetaminophen 1 tab PO Q4-6H PRN #14 tab 07/26/18 ondansetron 4 mg PO TID-QID PRN #10 tab 07/26/18 meloxicam [Mobic] 7.5 mg PO DAILY #30 tab 07/27/18 ondansetron 4 mg PO Q6-8H PRN #14 tab 07/27/18 oxycodone-acetaminophen [Percocet] 1 tab PO Q4-6H PRN #7 tab 07/28/18 prednisone See Label Instructions PO PER PKG 07/28/18 DIR #21 each promethazine 25 mg TX Q6H PRN #12 each 07/28/18 Allergies Allergy/AdvReac Type Severity Reaction Status Date / Time No Known Drug Allergies Allergy Verified 07/28/18 09:39 Review of Systems Review of Systems ROS Unobtainable: All systems reviewed & are unremarkable except as noted in HPI and below Constitutional Reports chills, Denies fever(s), Denies lethargy and Denies weakness Gastrointestinal Gastrointestinal: Denies abdominal pain, Denies melena, Denies hematochezia, Denies change in bowel habits, Denies constipation, Denies diarrhea, Reports nausea, Reports vomiting and Denies hematemesis Genitourinary Denies hematuria, Denies flank pain, Denies urinary frequency, Denies urinary incontinence and Denies urinary urgency Musculoskeletal Denies back pain Neurologic Denies weakness PFSH Medical History Healthy adult (Acute) Surgical History No pertinent past surgical history (Acute) Social History Smoking Status: Current every day smoker Exam Narrative Exam Narrative: GENERAL: Alert and oriented x three, tall, well-nourished, well-appearing male in moderate distress. HEENT: Head normocephalic, atraumatic, EOMI, pupils reactive, face symmetric, moist mucous membranes NECK: Supple, full range of motion CARDIOVASCULAR: Regular rate and rhythm without murmurs, rubs or gallops. RESPIRATORY: Breath sounds equal bilaterally, no wheezes rales or rhonchi. ABDOMEN: Soft, moderate upper abdominal tenderness. Hyperactive bowel sounds all 4 quadrants. No guarding or rebound, rigidity, no mass. : No CVA tenderness EXTREMITIES: Normal range of motion, no clubbing or edema. Neurovascularly intact NEUROLOGICAL: Cranial nerves II through XII grossly intact. Moving all extremities SKIN: Warm, dry, no petechiae, no rashes or lesions. Initial Vital Signs Initial Vital Signs: Vital Signs Temperature 97.8 F 07/28/18 09:39 Pulse Rate 79 07/28/18 09:39 Respiratory Rate 18 07/28/18 09:39 Blood Pressure 139/69 07/28/18 09:39 Pulse Oximetry 100 07/28/18 09:39 Course Orders Ordered: ED Orders 07/28/18 10:15 Complete Blood Count AUTO DIFF Stat Comprehensive Metabolic Panel Stat Lipase Stat Procalcitonin Stat 07/28/18 13:10 Blood Culture Stat Discontinued Medications Hydromorphone HCl (Dilaudid) 1 mg IV NOW ONE Stop: 07/28/18 10:55 Last Admin: 07/28/18 11:04 Dose: 1 mg Hydromorphone HCl (Dilaudid) 1 mg IV NOW ONE Stop: 07/28/18 12:57 Last Admin: 07/28/18 13:05 Dose: 1 mg Sodium Chloride (Normal Saline 0.9%) 1,000 mls @ 1,000 mls/hr IV BOLUS ONE Stop: 07/28/18 11:00 Last Infusion: 07/28/18 11:06 Dose: 0 mls/hr Admin: 07/28/18 10:37 Dose: 1,000 mls/hr Ketorolac Tromethamine (Toradol) 30 mg IV NOW ONE Stop: 07/28/18 10:25 Last Admin: 07/28/18 10:34 Dose: 30 mg Methylprednisolone (Solu-Medrol 125 Mg Vial) 125 mg IV NOW ONE Stop: 07/28/18 11:33 Last Admin: 07/28/18 11:47 Dose: 125 mg Ondansetron HCl (Zofran) 4 mg IV NOW ONE Stop: 07/28/18 10:39 Last Admin: 07/28/18 10:34 Dose: 4 mg Ondansetron HCl (Zofran) 4 mg IV NOW ONE Stop: 07/28/18 11:39 Last Admin: 07/28/18 11:47 Dose: 4 mg Ondansetron HCl (Zofran) 4 mg IV NOW ONE Stop: 07/28/18 12:57 Last Admin: 07/28/18 13:05 Dose: 4 mg Oxycodone/Acetaminophen (Percocet 5/325) 2 tab PO NOW ONE Stop: 07/28/18 13:57 Last Admin: 07/28/18 14:16 Dose: 2 tab Vital Signs - 8 hr 07/28/18 09:39 07/28/18 12:27 07/28/18 14:49 Temperature 97.8 F Pulse Rate 79 70 81 Respiratory Rate 18 15 18 Blood Pressure 139/69 Blood Pressure [Left Arm] 133/73 133/78 Pulse Oximetry 100 99 95 MDM - Abdominal Pain Lab Data Attestation: I reviewed the patient's lab results. Result diagrams: 07/28/18 10:15 07/28/18 10:15 Lab Results 07/28/18 07/28/18 07/28/18 Range/Units 10:15 10:15 10:15 WBC 7.5 (4.5-11.0) X10^3/uL RBC 4.84 (4.5-5.9) X10^6/uL Hgb 14.9 (13.5-17.5) g/dL Hct 42.8 (41-53) % MCV 88.4 (80-100) fL MCH 30.8 (26-34) PG MCHC 34.8 (30-36) % RDW 13.0 (11.6-14.8) % Plt Count 274 (150-400) X10^3/uL Neut % (Auto) 83.0 H (50-75) % Lymph % (Auto) 13.6 L (25-40) % [place] % (Auto) 3.1 (3-14) % Eos % (Auto) 0.0 L (2-4) % Baso % (Auto) 0.3 (0-2) % Neut # (Auto) 6300 (2557-2755) /uL Lymph # (Auto) 1000 L (0334-2290) /uL [place] # (Auto) 200 (0-900) /uL Eos # (Auto) 0 (0-450) /uL Baso # (Auto) 0 (0-100) /uL Sodium 139 (137-145) mmol/L Potassium 4.2 (3.4-5.1) mmol/L Chloride 105 (98-107) mmol/L Carbon Dioxide 20 L (22-32) mmol/L BUN 12 (9-20) mg/dL Creatinine 1.00 (0.66-1.25) mg/dL Estimated GFR > 60.0 (>60) mL/min BUN/Creatinine Ratio 12.0 (6-22) Glucose 92 (70-100) mg/dL Calcium 9.9 (8.4-10.2) mg/dL Total Bilirubin 0.9 (0.2-1.3) mg/dL AST 78 H (17-59) IU/L ALT 143 H (21-72) IU/L Alkaline Phosphatase 59 (38-126) U/L Total Protein 7.9 (6.3-8.2) g/dL Albumin 5.0 (3.5-5.0) g/dL Globulin 2.9 (1.7-4.1) g/dL Albumin/Globulin Ratio 1.7 (1.0-2.8) Lipase (23-300) U/L Procalcitonin < 0.05 (<0.5) ng/mL 07/28/18 Range/Units 10:15 WBC (4.5-11.0) X10^3/uL RBC (4.5-5.9) X10^6/uL Hgb (13.5-17.5) g/dL Hct (41-53) % MCV (80-100) fL MCH (26-34) PG MCHC (30-36) % RDW (11.6-14.8) % Plt Count (150-400) X10^3/uL Neut % (Auto) (50-75) % Lymph % (Auto) (25-40) % [place] % (Auto) (3-14) % Eos % (Auto) (2-4) % Baso % (Auto) (0-2) % Neut # (Auto) (5343-8961) /uL Lymph # (Auto) (5249-4141) /uL [place] # (Auto) (0-900) /uL Eos # (Auto) (0-450) /uL Baso # (Auto) (0-100) /uL Sodium (137-145) mmol/L Potassium (3.4-5.1) mmol/L Chloride (98-107) mmol/L Carbon Dioxide (22-32) mmol/L BUN (9-20) mg/dL Creatinine (0.66-1.25) mg/dL Estimated GFR (>60) mL/min BUN/Creatinine Ratio (6-22) Glucose (70-100) mg/dL Calcium (8.4-10.2) mg/dL Total Bilirubin (0.2-1.3) mg/dL AST (17-59) IU/L ALT (21-72) IU/L Alkaline Phosphatase (38-126) U/L Total Protein (6.3-8.2) g/dL Albumin (3.5-5.0) g/dL Globulin (1.7-4.1) g/dL Albumin/Globulin Ratio (1.0-2.8) Lipase 68 (23-300) U/L Procalcitonin (<0.5) ng/mL Point of care testing: Urine Dip Bedside Urine Glucose Negative Bedside Urine Bilirubin - Negative Bedside Urine Ketone +++ 80 Urine Specific [place] 1.010 Bedside Urine Occult Blood - Negative Bedside Urine pH 8.0 Bedside Urine Protein - Negative Bedside Urine Urobilinogen - Negative Bedside Urine Nitrite - Negative Bedside Urine Leukocytes - Negative Esterase MDM Narrative Medical decision making narrative: Patient's CT were reviewed including yesterdays. Patient abdominal exam is benign. On recheck after Toradol and then Dilaudid patient was able to sleep. He did request some additional anti-nausea medication. Patient and I discussed that I suspect his colitis may be inflammatory rather than infectious with his minimal improvement after 4-5 days of treatment. Patient given Solumedrol 125mg IV. He has not had any emesis in the department. Blood cultures were ordered with patient's prolonged symptoms and intermittent chills. No other signs of sepsis. Discussed with patient, he was able to keep down some oral Percocet for about 45 min without issues as well as some oral liquids. Patient is DC home with prednisone which he can start tomorrow, several tablets of Percocet, he also has [place], as well as promethazine rectal. Patient still has some Zofran sublingual although he states that was not her helpful. I did encourage him to return if he continues to have symptoms as that he may need admission if he has continuing not to improved. Patient states he still has pain but he appears more comfortable he was able to sleep while he was in the department, he has not had any emesis in the department while he has been here, he was watching the football game prior to discharge. Discharge Plan Departure Patient Disposition: Home Clinical Impression: Colitis Instructions: DI for Colitis Activity Restrictions/Additional Instructions: I suspect that your colitis may be inflammatory in nature and not responding to antibiotics and recommend starting steroids. Take prednisone daily until gone. You had your first dose of steroids in the ER. Continue pain medications as prescribed, this medication can make you sleepy do not drive, perform hazards activities or make any major decisions while taking it. You can use to promethazine per rectum as a suppository every 6 hr as needed for nausea. You may still continue to take Zofran sublingually every 4 hr as needed. Return to the ER for fevers greater than 100.4F, worsening abdominal pain, persistent vomiting, black or bloody stools, signs of dehydration, or other new or concerning symptoms. Prescriptions: New prednisone 10 mg tablets,dose pack See Label Instructions PO PER PKG DIR Qty: 21 RF: 0 promethazine 25 mg suppository 25 mg TX Q6H PRN (Reason: nausea and vomiting) Qty: 12 RF: 0 oxycodone-acetaminophen [Percocet] 5-325 mg tablet 1 tab PO Q4-6H PRN (Reason: pain) Qty: 7 RF: 0 No Action hydrocodone-acetaminophen [[place]] 5-325 mg tablet 1 tab PO Q4-6H PRN (Reason: pain) Qty: 10 RF: 0 metronidazole [Flagyl] 500 mg tablet 500 mg PO TID 10 Days Qty: 30 RF: 0 ciprofloxacin HCl 500 mg tablet 500 mg PO BID 10 Days Qty: 20 RF: 0 ondansetron 4 mg tablet,disintegrating 4 mg PO Q6-8H PRN (Reason: nausea and vomiting) Qty: 10 RF: 0 hydrocodone-acetaminophen 5-325 mg tablet 1 tab PO Q4-6H PRN (Reason: pain) Qty: 14 RF: 0 ondansetron 4 mg tablet,disintegrating 4 mg PO TID-QID PRN (Reason: nausea and vomiting) Qty: 10 RF: 0 ondansetron 4 mg tablet,disintegrating 4 mg PO Q6-8H PRN (Reason: nausea and vomiting) Qty: 14 RF: 0 meloxicam [Mobic] 7.5 mg tablet 7.5 mg PO DAILY Qty: 30 RF: 0
[2018-07-28 10:28] LABS: Add Manual Diff / Slide Review NO; Basophils Absolute Auto 0 /uL (0-100); Basophils Percent Auto 0.3 % (0-2); Eosinophils Absolute Auto 0 /uL (0-450); Hematocrit 42.8 % (41-53); Hemoglobin 14.9 g/dL (13.5-17.5); Lymphocytes Absolute Auto 1000 /uL (1100-4500); Lymphocytes Percent Auto 13.6 % (25-40); Mean Corpuscular HGB Conc 34.8 % (30-36); Mean Corpuscular Hemoglobin 30.8 PG (26-34); Mean Corpuscular Volume 88.4 fL (80-100); Monocytes Absolute Auto 200 /uL (0-900); Monocytes Percent Auto 3.1 % (3-14); Neutrophils Absolute Auto 6300 /uL (1500-7000); Platelet Count 274 X10^3/uL (150-400); Red Blood Cell Count 4.84 X10^6/uL (4.5-5.9); White Blood Cell Count 7.5 X10^3/uL (4.5-11.0)
[2018-07-28] MEDS: KETOROLAC 60 MG/2 ML VIAL 30 MG IV (10:34)
[2018-07-28] MEDS: ONDANSETRON 4 MG/2 ML INJ IV ×3 (10:34→13:05)
[2018-07-28] MEDS: SODIUM CHLORIDE 0.9% 1,000 ML 1000 ML IV (10:37)
[2018-07-28 10:40] LABS: Alanine Aminotransferase 143 IU/L (21-72); Albumin Globulin Ratio 1.7 (1.0-2.8); Alkaline Phosphatase 59 U/L (38-126); Aspartate Aminotransferase 78 IU/L (17-59); Bilirubin Total 0.9 mg/dL (0.2-1.3); Blood Urea Nitrogen 12 mg/dL (9-20); Calcium 9.9 mg/dL (8.4-10.2); Carbon Dioxide 20 mmol/L (22-32); Chloride 105 mmol/L (98-107); Estimated Glomerular Filt Rate > 60.0 mL/min (>60); Globulin 2.9 g/dL (1.7-4.1); Glucose 92 mg/dL (70-100); HEMOLYSIS < 15 (0-50); Potassium 4.2 mmol/L (3.4-5.1); Sodium 139 mmol/L (137-145); Total Protein 7.9 g/dL (6.3-8.2)
[2018-07-28 10:41] LABS: Lipase 68 U/L (23-300)
[2018-07-28 11:00] LABS: Procalcitonin < 0.05 ng/mL (<0.5)
[2018-07-28] MEDS: HYDROMORPHONE 1 MG INJ IV ×2 (11:04→13:05)
[2018-07-28] MEDS: methylPREDNISolone 125 MG/2 ML VIAL IV (11:47)
[2018-07-28 12:27] VITALS: BP 133/73; PULSE 70; RESP 15; O2SAT 99
[2018-07-28] MEDS: OXYCODONE/ACETAMINOPHEN 5/325 TABLET 2 TAB PO (14:16)
[2018-07-28 14:49] VITALS: BP 133/78; PULSE 81; RESP 18; O2SAT 95
== END 2018-07-28 14:55 | disposition home or self-care (01) ==
PROVIDERS: Emergency Provider Emergency Medicine
DX: K52.9 Noninfective gastroenteritis and colitis, unspecified (principal)
CPT/HCPCS: 36415; 80053; 81003; 83690; 84145; 85025; 87040; 96374; 96375; 96376; 99283; 99284; J1170; J1885; J2405; J2930

== ENCOUNTER 2020-02-08 10:10 | Emergency (ER) | payer OTHER, SELFPAY ==
[2020-02-08] VITALS (11 sets, daily range): BP systolic 128–142; BP diastolic 68–76; PULSE 62–86; RESP 13; TEMP 36.9; O2SAT 95–100; BMI 23.7
[2020-02-08] MEDS: MORPHINE 4 MG/ML INJ IV (10:39)
[2020-02-08] MEDS: ONDANSETRON 4 MG/2 ML INJ IV (10:39)
[2020-02-08] MEDS: SODIUM CHLORIDE 0.9% 1,000 ML 1000 ML IV ×2 (10:39→12:00)
[2020-02-08 10:53] LABS: Add Manual Diff / Slide Review NO; Basophils Absolute Auto 0 /uL (0-100); Basophils Percent Auto 0.3 % (0-2); Eosinophils Absolute Auto 0 /uL (0-450); Eosinophils Percent Auto 0.2 % (2-4); Hematocrit 42.7 % (41-53); Hemoglobin 14.7 g/dL (13.5-17.5); Lymphocytes Absolute Auto 1100 /uL (1100-4500); Lymphocytes Percent Auto 7.2 % (25-40); Mean Corpuscular HGB Conc 34.5 % (30-36); Mean Corpuscular Hemoglobin 31.3 PG (26-34); Mean Corpuscular Volume 90.8 fL (80-100); Monocytes Absolute Auto 200 /uL (0-900); Monocytes Percent Auto 1.6 % (3-14); Neutrophils Absolute Auto 13500 /uL (1500-7000); Neutrophils Percent Auto 90.7 % (50-75); Platelet Count 212 X10^3/uL (150-400); Red Blood Cell Count 4.71 X10^6/uL (4.5-5.9); Red Cell Distribution Width 12.9 % (11.6-14.8); White Blood Cell Count 14.9 X10^3/uL (4.5-11.0)
[2020-02-08 10:57] LABS: PTT Partial Thromboplastin Tim 35 SECONDS (26.4-36.2)
[2020-02-08 11:19] LABS: Alanine Aminotransferase 40 IU/L (<50); Albumin 4.9 g/dL (3.5-5.0); Albumin Globulin Ratio 1.9 (1.0-2.8); Alkaline Phosphatase 63 U/L (38-126); Aspartate Aminotransferase 35 IU/L (17-59); BUN Creatinine Ratio 18.3 (6-22); Bilirubin Total 0.9 mg/dL (0.2-1.3); Blood Urea Nitrogen 15 mg/dL (9-20); Carbon Dioxide 29 mmol/L (22-32); Chloride 105 mmol/L (98-107); Estimated Glomerular Filt Rate > 60.0 mL/min (>60); Globulin 2.6 g/dL (1.7-4.1); Glucose 116 mg/dL (70-100); HEMOLYSIS < 15 (0-50); Lactate (Lactic Acid) 0.8 mmol/L (0.7-2.1); Lipase 46 U/L (23-300); Potassium 4.1 mmol/L (3.4-5.1); Sodium 138 mmol/L (137-145); Total Protein 7.5 g/dL (6.3-8.2)
[2020-02-08 11:20] LABS: Lactate Dehydrogenase 393 U/L (313-618)
--- NOTE | 2020-02-08 11:28 | DI.CT.S_ITS ---
PROCEDURE: CT ABDOMEN PELVIS W CON INDICATIONS: hx of colitis, diffuse abdominal tenderness with guarding TECHNIQUE: After the administration of intravenous contrast, 5 mm thick sections acquired from the diaphragm to the symphysis. 5 mm coronal and sagittal reformats were acquired. For radiation dose reduction, the following was used: automated exposure control, adjustment of mA and/or kV according to patient size. COMPARISON: [facility], CT, CT ABDOMEN PELVIS W CON, 07/27/2018, 8:39. FINDINGS: Image quality: Excellent. ABDOMEN: Lung bases: Lung bases are clear. Heart size is normal. Solid organs: Liver is normal in size and enhancement. Gallbladder is within normal limits . Biliary system is non dilated. Pancreas enhances normally. Spleen is normal in size and enhancement. No adrenal nodules. Kidneys demonstrate normal size and enhancement, without hydronephrosis. Peritoneum and bowel: Bowel loops demonstrate normal wall thickness and caliber. No pneumoperitoneum. Small amount of free fluid within the pelvis. Normal appendix. Nodes and vessels: No retroperitoneal or mesenteric adenopathy by size criteria. Aorta and inferior vena cava are normal in size. Miscellaneous: No ventral hernias. PELVIS: Genitourinary: Bladder wall thickness is normal. Miscellaneous: No inguinal hernias or adenopathy. Bones: No suspicious bony lesions. No vertebral body compression fractures. IMPRESSION: 1. Small amount of free fluid within the pelvis, which is nonspecific, but may indicate peritoneal inflammation. 2. Normal appendix. 3. No evidence of colitis. Dictated by: Zaki Castelan M.D. on 02/08/2020 at 11:03 Approved by: Zaki Castelan M.D. on 02/08/2020 at 11:05
--- NOTE | 2020-02-08 11:28 | ED_ITS ---
HPI - Abdominal Pain General Chief Complaint: Abdominal Pain Stated Complaint: Nausea vomiting abd pain Time Seen by Provider: 02/08/20 11:09 Source: patient Mode of arrival: Ambulatory Limitations: no limitations History of Present Illness HPI narrative: CC: Abdominal Pain HPI: The patient is a 29-year-old male who is in the , [employer] who returned from [place] January 02. The patient states that he developed abdominal pain and cramps on Sunday which has progressively become worse and comes in waves. The discomfort is primarily centered around the periumbilical area. He states that he has had a past history of colitis. He states that his colitis was undefined. He denies a history of ulcerative colitis Crohn's disease irritable bowel syndrome or diarrhea. He has had no fever chills or sweats nor headache. He denies any nasal drainage sore throat trouble swallowing chest pain cough shortness of breath palpitations or dizziness. He has vomited 4-5 times today that has been bilious in nature without hematemesis or coffee-ground emesis. He has had no diarrhea melena or hematochezia. His last bowel movement was yesterday. He has had no urinary symptoms. He admits to smoking cigarettes drinking alcohol but does not use marijuana. The patient is in the [employer]. He denies having a heart attack or stroke hypertension or diabetes mellitus. Related Data Previous Rx's Medication Instructions Recorded dicyclomine 20 mg PO QID PRN #20 tab 02/08/20 hydrocodone-acetaminophen [[place]] 1 tab PO Q4-6H PRN #12 tab 02/08/20 ondansetron HCl [Zofran] 4 mg PO Q6H PRN #15 tab 02/08/20 Allergies Allergy/AdvReac Type Severity Reaction Status Date / Time No Known Drug Allergies Allergy Verified 07/28/18 09:39 Review of Systems Review of Systems Narrative: His review of systems were all negative except for those mentioned in the history of present illness. Patient History Medical History Healthy adult (Acute) Surgical History No pertinent past surgical history (Acute) Social History Smoking Status: Current every day smoker Smoking Status: Current every day smoker alcohol intake frequency: 0-2 drinks per day Substance Use Type: does not use Exam Narrative Exam Narrative: PHYSICAL EXAM: CONSTITUTIONAL: Awake, Alert, Oriented, Coherent, Cooperative. He appears to be a young healthy male that does not appear toxic. The patient lesion states that he is in moderate distress. l. HEAD: AT/NC EENT: PERRL, FROM of eyes, no discharge, no nystagmus NOSE:No epistaxis or nasal drainage MOUTH:Oral mucosa is moist and pink, posterior pharynx is without erythema or exudate. NECK: Supple, no obvious JVD, Trachea is midline without stridor, . SPINE: Palpation of the cervical, Thoracic, Lumbar or Sacral spine reveals no gross deformity or tenderness. No CVA tenderness. THORAX: No deformity, retractions, chest wall tenderness. LUNGS: Clear, symmetrical breath sounds without respiratory distress. HEART: Normal heart tones, regular rhythm and rate without murmur. ABDOMEN: The patient holds the abdomen diffusely firm without guarding or rebound. The patient's bowel sounds are normal. EXTREMITIES: No edema, deformity, tenderness or cyanosis. SKIN: No rash, bruising, petechiae or purpura. NEURO: Awake, alert, oriented, conversive, cranial nerves II-XII are symmetrical , moves all 4 extremities and is ambulatory. Initial Vital Signs Initial Vital Signs: Vital Signs Temperature 98.5 F 02/08/20 10:30 Blood Pressure 134/69 02/08/20 10:30 Course Course Course Narrative: 1240: The CT of the patient's abdomen with IV contrast revealed: Solid organs: Liver is normal in size and enhancement. Gallbladder is within normal limits . Biliary system is non dilated. Pancreas enhances normally. Spleen is normal in size and enhancement. No adrenal nodules. Kidneys demonstrate normal size and enhancement, without hydronephrosis. Peritoneum and bowel: Bowel loops demonstrate normal wall thickness and caliber. No pneumoperitoneum. Small amount of free fluid within the pelvis. Normal a ppendix. Nodes and vessels: No retroperitoneal or mesenteric adenopathy by size criteria. Aorta and inferior vena cava are normal in size. Miscellaneous: No ventral hernias. PELVIS: Genitourinary: Bladder wall thickness is normal. Miscellaneous: No inguinal hernias or adenopathy. Bones: No suspicious bony lesions. No vertebral body compression fractures. IMPRESSION: 1. Small amount of free fluid within the pelvis, which is nonspecific, but may indicate peritoneal inflammation. 2. Normal appendix. 3. No evidence of colitis. 1243: The patient questionably continues to request pain medications. He has been administered 4 mg of morphine sulfate followed by 1.5 mg of Dilaudid. The patient's CT of his abdomen is negative. The patient has an elevated white blood count white blood count at 14.9 which may be secondary to his recurrent vomiting and demargination. His electrolytes, liver function tests and lipase are all within normal limits. 1400: As I was explaining to the patient that all of his test came back normal and we were discharging him he states that in 2 days he is going to be shipped out to [place] on vigorous training. The patient was told that he will need to be re-evaluated in 24 hours. But at this time all of his tests are within shanna l limits. The patient kept it telling the nurse that he needed a no fly note. Since his CT scan in all of his laboratory tests were within normal limits I was questioning whether not the patient might be malingering. He was informed that he needed to be re-evaluated in 24 hours but at this time no pathology was evident. Orders Ordered: ED Orders 02/08/20 10:28 Complete Blood Count AUTO DIFF Stat Comprehensive Metabolic Panel Stat Erythrocyte Sedimentation Rate Stat Lactate (Lactic Acid) Stat Lactate Dehydrogenase Stat Lipase Stat Partial Thromboplastin Time Stat Prothrombin Time INR Stat 02/08/20 10:32 EKG-12 Lead Stat 02/08/20 11:28 CT abdomen pelvis w con Stat 02/08/20 11:44 Urine Culture Stat Urine Microscopic Stat 02/08/20 13:14 Urine Drug Screen, Rapid Stat Discontinued Medications Dicyclomine HCl (Bentyl) 20 mg PO NOW ONE Stop: 02/08/20 12:48 Last Admin: 02/08/20 12:53 Dose: 20 mg Documented by: IKE Hydromorphone HCl (Dilaudid) 0.5 mg IV NOW ONE Stop: 02/08/20 11:29 Last Admin: 02/08/20 11:38 Dose: 0.5 mg Documented by: IKE Hydromorphone HCl (Dilaudid) 0.5 mg IV NOW ONE Stop: 02/08/20 14:00 Last Admin: 02/08/20 14:17 Dose: 0.5 mg Documented by: IKE Sodium Chloride (Normal Saline 0.9%) 1,000 mls @ 1,000 mls/hr IV BOLUS ONE Stop: 02/08/20 11:34 Last Infusion: 02/08/20 11:47 Dose: 0 mls/hr Documented by: Admin: 02/08/20 10:39 Dose: 1,000 mls/hr Documented by: IKE Sodium Chloride (Normal Saline 0.9%) 1,000 mls @ 150 mls/hr IV BOLUS ONE Stop: 02/08/20 18:20 Last Infusion: 02/08/20 12:56 Dose: 0 mls/hr Documented by: Admin: 02/08/20 12:00 Dose: 1,000 mls/hr Documented by: IKE Morphine Sulfate (Morphine) 4 mg IV NOW ONE Stop: 02/08/20 10:36 Last Admin: 02/08/20 10:39 Dose: 4 mg Documented by: IKE Ondansetron HCl (Zofran) 4 mg IV NOW ONE Stop: 02/08/20 10:36 Last Admin: 02/08/20 10:39 Dose: 4 mg Documented by: IKE Vital Signs Vital signs: Vital Signs - 8 hr 02/08/20 10:30 02/08/20 10:33 02/08/20 11:00 Temperature 98.5 F Pulse Rate 68 74 Respiratory Rate Blood Pressure 134/69 134/70 Pulse Oximetry 98 95 02/08/20 11:30 02/08/20 11:59 02/08/20 12:00 Temperature Pulse Rate 77 74 68 Respiratory Rate Blood Pressure 136/69 139/74 Pulse Oximetry 95 95 97 02/08/20 12:30 02/08/20 13:00 02/08/20 13:30 Temperature Pulse Rate 86 71 71 Respiratory Rate Blood Pressure 128/68 139/69 142/74 H Pulse Oximetry 98 99 97 02/08/20 14:00 02/08/20 14:33 Temperature Pulse Rate 81 62 Respiratory Rate 13 Blood Pressure 139/76 Pulse Oximetry 99 100 MDM - Abdominal Pain Medical Records Attestation: I reviewed the patient's medical records. Lab Data Attestation: I reviewed the patient's lab results. Result diagrams: 02/08/20 10:28 02/08/20 10:28 Labs: Lab Results 02/08/20 02/08/20 02/08/20 Range/Units 10: 10:28 10:28 WBC 14.9 H (4.5-11.0) X10^3/uL RBC 4.71 (4.5-5.9) X10^6/uL Hgb 14.7 (13.5-17.5) g/dL Hct 42.7 (41-53) % MCV 90.8 (80-100) fL MCH 31.3 (26-34) PG MCHC 34.5 (30-36) % RDW 12.9 (11.6-14.8) % Plt Count 212 (150-400) X10^3/uL Neut % (Auto) 90.7 H (50-75) % Lymph % (Auto) 7.2 L (25-40) % [place] % (Auto) 1.6 L (3-14) % Eos % (Auto) 0.2 L (2-4) % Baso % (Auto) 0.3 (0-2) % Neut # (Auto) 83573 H (8809-5058) /uL Lymph # (Auto) 1100 (3798-9443) /uL [place] # (Auto) 200 (0-900) /uL Eos # (Auto) 0 (0-450) /uL Baso # (Auto) 0 (0-100) /uL ESR (0-15) MM/HR PT 12.0 (10.1-12.7) SECONDS INR 1.0 (0.9-1.3) APTT 35 (26.4-36.2) SECONDS Sodium (137-145) mmol/L Potassium (3.4-5.1) mmol/L Chloride (98-107) mmol/L Carbon Dioxide (22-32) mmol/L BUN (9-20) mg/dL Creatinine (0.66-1.25) mg/dL Estimated GFR (>60) mL/min BUN/Creatinine Ratio (6-22) Glucose (70-100) mg/dL Lactate (0.7-2.1) mmol/L Calcium (8.4-10.2) mg/dL Total Bilirubin (0.2-1.3) mg/dL AST (17-59) IU/L ALT (<50) IU/L Alkaline Phosphatase (38-126) U/L Lactate Dehydrogenase (313-618) U/L Total Protein (6.3-8.2) g/dL Albumin (3.5-5.0) g/dL Globulin (1.7-4.1) g/dL Albumin/Globulin Ratio (1.0-2.8) Lipase (23-300) U/L Urine RBC (0-5/HPF) Urine WBC (0-5/HPF) Urine Bacteria (None) Urine Mucus (Negative) Ur Culture Indicated? U Opiates 300ng/mL cut (Negative) Ur Oxycodone Screen (Negative) Urine Methadone Screen (Negative) Ur Barbiturates Screen (Negative) U Tricyclic Antidepress (Negative) Ur Phencyclidine Scrn (Negative) Ur Amphetamines Screen (Negative) U Methamphetamines Scrn (Negative) Ur MDMA Scrn (Ecstasy) (Negative) U Benzodiazepines Scrn (Negative) Urine Cocaine Screen (Negative) U Marijuana (THC) Screen (Negative) COVID-19 PCR Negative (Negative) 02/08/20 02/08/20 02/08/20 Range/Units 10:28 10:28 10:28 WBC (4.5-11.0) X10^3/uL RBC (4.5-5.9) X10^6/uL Hgb (13.5-17.5) g/dL Hct (41-53) % MCV (80-100) fL MCH (26-34) PG MCHC (30-36) % RDW (11.6-14.8) % Plt Count (150-400) X10^3/uL Neut % (Auto) (50-75) % Lymph % (Auto) (25-40) % [place] % (Auto) (3-14) % Eos % (Auto) (2-4) % Baso % (Auto) (0-2) % Neut # (Auto) (0046-0679) /uL Lymph # (Auto) (5448-0929) /uL [place] # (Auto) (0-900) /uL Eos # (Auto) (0-450) /uL Baso # (Auto) (0-100) /uL ESR 2 (0-15) MM/HR PT (10.1-12.7) SECONDS INR (0.9-1.3) APTT (26.4-36.2) SECONDS Sodium 138 (137-145) mmol/L Potassium 4.1 (3.4-5.1) mmol/L Chloride 105 (98-107) mmol/L Carbon Dioxide 29 (22-32) mmol/L BUN 15 (9-20) mg/dL Creatinine 0.82 (0.66-1.25) mg/dL Estimated GFR > 60.0 (>60) mL/min BUN/Creatinine Ratio 18.3 (6-22) Glucose 116 H (70-100) mg/dL Lactate 0.8 (0.7-2.1) mmol/L Calcium 10.0 (8.4-10.2) mg/dL Total Bilirubin 0.9 (0.2-1.3) mg/dL AST 35 (17-59) IU/L ALT 40 (<50) IU/L Alkaline Phosphatase 63 (38-126) U/L Lactate Dehydrogenase (313-618) U/L Total Protein 7.5 (6.3-8.2) g/dL Albumin 4.9 (3.5-5.0) g/dL Globulin 2.6 (1.7-4.1) g/dL Albumin/Globulin Ratio 1.9 (1.0-2.8) Lipase 46 (23-300) U/L Urine RBC (0-5/HPF) Urine WBC (0-5/HPF) Urine Bacteria (None) Urine Mucus (Negative) Ur Culture Indicated? U Opiates 300ng/mL cut (Negative) Ur Oxycodone Screen (Negative) Urine Methadone Screen (Negative) Ur Barbiturates Screen (Negative) U Tricyclic Antidepress (Negative) Ur Phencyclidine Scrn (Negative) Ur Amphetamines Screen (Negative) U Methamphetamines Scrn (Negative) Ur MDMA Scrn (Ecstasy) (Negative) U Benzodiazepines Scrn (Negative) Urine Cocaine Screen (Negative) U Marijuana (THC) Screen (Negative) COVID-19 PCR (Negative) 02/08/20 02/08/20 02/08/20 Range/Units 10:28 11:44 13:14 WBC (4.5-11.0) X10^3/uL RBC (4.5-5.9) X10^6/uL Hgb (13.5-17.5) g/dL Hct (41-53) % MCV (80-100) fL MCH (26-34) PG MCHC (30-36) % RDW (11.6-14.8) % Plt Count (150-400) X10^3/uL Neut % (Auto) (50-75) % Lymph % (Auto) (25-40) % [place] % (Auto) (3-14) % Eos % (Auto) (2-4) % Baso % (Auto) (0-2) % Neut # (Auto) (8402-5710) /uL Lymph # (Auto) (1740-5184) /uL [place] # (Auto) (0-900) /uL Eos # (Auto) (0-450) /uL Baso # (Auto) (0-100) /uL ESR (0-15) MM/HR PT (10.1-12.7) SECONDS INR (0.9-1.3) APTT (26.4-36.2) SECONDS Sodium (137-145) mmol/L Potassium (3.4-5.1) mmol/L Chloride (98-107) mmol/L Carbon Dioxide (22-32) mmol/L BUN (9-20) mg/dL Creatinine (0.66-1.25) mg/dL Estimated GFR (>60) mL/min BUN/Creatinine Ratio (6-22) Glucose (70-100) mg/dL Lactate (0.7-2.1) mmol/L Calcium (8.4-10.2) mg/dL Total Bilirubin (0.2-1.3) mg/dL AST (17-59) IU/L ALT (<50) IU/L Alkaline Phosphatase (38-126) U/L Lactate Dehydrogenase 393 (313-618) U/L Total Protein (6.3-8.2) g/dL Albumin (3.5-5.0) g/dL Globulin (1.7-4.1) g/dL Albumin/Globulin Ratio (1.0-2.8) Lipase (23-300) U/L Urine RBC 0-1/hpf (0-5/HPF) Urine WBC 0-1/hpf (0-5/HPF) Urine Bacteria Occasional (0-1) (None) Urine Mucus 2+ H (Negative) Ur Culture Indicated? Specimen cultured U Opiates 300ng/mL cut Positive H (Negative) Ur Oxycodone Screen Negative (Negative) Urine Methadone Screen Negative (Negative) Ur Barbiturates Screen Negative (Negative) U Tricyclic Antidepress Negative (Negative) Ur Phencyclidine Scrn Negative (Negative) Ur Amphetamines Screen Negative (Negative) U Methamphetamines Scrn Negative (Negative) Ur MDMA Scrn (Ecstasy) Negative (Negative) U Benzodiazepines Scrn Negative (Negative) Urine Cocaine Screen Negative (Negative) U Marijuana (THC) Screen Positive H (Negative) COVID-19 PCR (Negative) Point of care testing: Urine Dip Bedside Urine Glucose Negative Bedside Urine Bilirubin - Negative Bedside Urine Ketone ++ 40 Urine Specific [place] 1.015 Bedside Urine Occult Blood +/- Bedside Urine pH 6 Bedside Urine Protein - Negative Bedside Urine Urobilinogen - Negative Bedside Urine Nitrite - Negative Bedside Urine Leukocytes +/- 15 Esterase ECG Data Attestation: I personally reviewed and interpreted this ECG as follows: Interpretation: 1230: The patient's EKG obtained at 10:49 a.m. reveals a normal sinus rhythm with a ventricular rate of 58. Intervals are normal QTC is 380 milliseconds with a right axis deviation the patient has nonspecific ST segment change juices without any acute diagnostic ST or T-wave changes. The EKG otherwise appears normal. Discharge Plan Departure Patient Disposition: Home Clinical Impression: History of colitis Abdominal pain Qualifiers: Abdominal location: generalized Qualified Code(s): R10.84 - Generalized abdominal pain Nausea and vomiting Qualifiers: Vomiting type: bilious vomiting Qualified Code(s): R11.14 - Bilious vomiting Discharge Date/Time: 02/08/20 14:34 Instructions: DI for Abdominal Pain-Adult, DI for Nausea -- Adult, Nausea and Vomiting-Adult Activity Restrictions/Additional Instructions: 1. You need to follow-up with your primary care physician and be rechecked in 48-[address] scan and laboratory chemistries are within normal limits except for a slightly elevated white blood count. 3. You need to be drinking frequent small volumes at least 2-4 L of fluid to keep yourself hydrated. After you stop vomiting you can advance your diet as tolerated. 4. For the abdominal pain cramps and discomfort you can take dicyclomine 20 mg every 6 hours. 5. For nausea and vomiting you can take 1-2, 4 mg Zofran tablets every 6 hours. 6. As a rescue pain medication you can take [place] 5/325 every 6 hours. 7. If you develop worsening pain and discomfort, fever, uncontrolled nausea and vomiting despite the medications, started vomiting blood or coffee-ground material developed black tarry diarrhea or bloody bowel movements or pass out you need to return to the emergency department. Otherwise you need to follow-up with your primary care physician. Prescriptions: New dicyclomine 20 mg tablet 20 mg PO QID PRN (Reason: abdominal pain,cramps discomfort) Qty: 20 RF: 0 ondansetron HCl [Zofran] 4 mg tablet 4 mg PO Q6H PRN (Reason: nausea and vomiting) Qty: 15 RF: 0 hydrocodone-acetaminophen [[place]] 5-325 mg tablet 1 tab PO Q4-6H PRN (Reason: pain) Qty: 12 RF: 0
[2020-02-08] MEDS: HYDROMORPHONE 0.5 MG INJ IV ×2 (11:38→14:17)
[2020-02-08 11:49] LABS: COVID19 -Nasal RAPID Negative (Negative)
[2020-02-08 11:51] LABS: Erythrocyte Sedimentation Rate 2 MM/HR (0-15)
[2020-02-08] MEDS: DICYCLOMINE 10 MG CAPSULE 20 MG PO (12:53)
[2020-02-08 13:21] LABS: Bacteria Urine Occasional (0-1); Culture Indicated Urine Specimen Cultured; Mucus Urine 2+ (Negative); RBC Urine 0-1/HPF (0-5/HPF); WBC Urine 0-1/HPF (0-5/HPF)
--- NOTE | 2020-02-08 14:22 | PC.NURSE ---
Pt requesting 'No fly' order. Instructed that he could fly medically at this time per provider and would have to make that order.
[2020-02-08 14:43] LABS: UR Morphine/Opiate cutoff 300 Positive (Negative); Ur Creatinine Normal (Normal); Ur Specific Gravity Normal (Normal); Urine Amphetamines Negative (Negative); Urine Barbiturates Negative (Negative); Urine Benzodiazepines Negative (Negative); Urine Cocaine Negative (Negative); Urine MDMA Negative (Negative); Urine Methadone Negative (Negative); Urine Methamphetamines Negative (Negative); Urine Oxycodone Negative (Negative); Urine Phencyclidine Negative (Negative); Urine Tetrahydrocannabinol Positive (Negative); Urine Tricyclic Antidepressant Negative (Negative); Urine pH Normal (Normal)
== END 2020-02-08 14:34 | disposition home or self-care (01) ==
PROVIDERS: Emergency Provider Emergency Medicine
DX: R10.84 Generalized abdominal pain (principal); R11.14 Bilious vomiting; D72.829 Elevated white blood cell count, unspecified; R11.2 Nausea with vomiting, unspecified; Z03.818 Encounter for observation for suspected exposure to other biological agents ruled out; Z87.19 Personal history of other diseases of the digestive system
CPT/HCPCS: 36415; 74177; 80053; 80305; 81003; 81015; 83605; 83615; 83690; 85025; 85610; 85651; 85730; 87086; 87635; 93005; 96361; 96374; 96375; 96376; 99284; J1170; J2270; J2405; Q9967

== ENCOUNTER 2020-02-09 07:17 | Emergency (ER) | payer OTHER, SELFPAY ==
[2020-02-09 07:20] VITALS: BP 141/92; PULSE 109; RESP 18; TEMP 36.7; O2SAT 98; BMI 23.7
--- NOTE | 2020-02-09 07:43 | ED.ABDPAIN ---
HPI - Abdominal Pain General Chief Complaint: Abdominal Pain Stated Complaint: stomach pain Time Seen by Provider: 02/09/20 07:33 Source: patient Mode of arrival: Ambulatory Limitations: no limitations History of Present Illness HPI narrative: Patient is a 29-year-old male who presents with a final pain. He was seen evaluated yesterday when it started. He says he vomited multiple times yesterday he actually a complete workup including blood work and a CT he received multiple doses of pain medications including morphine and Dilaudid and sent home with Vicodin. He returns today with continued increasing mid abdominal pain he feels nauseated but is not vomiting. He denies any diarrhea no fever or chills. He is unable to eat. He denies any chronic use of NSAIDs. MD complaint: abdominal pain Onset (ago): day(s) Related Data Previous Rx's Medication Instructions Recorded dicyclomine 20 mg PO QID PRN #20 tab 02/08/20 hydrocodone-acetaminophen [[place]] 1 tab PO Q4-6H PRN #12 tab 02/08/20 ondansetron HCl [Zofran] 4 mg PO Q6H PRN #15 tab 02/08/20 amoxicillin-pot clavulanate 1 tab PO Q12H #14 tab 02/09/20 [Augmentin] omeprazole 20 mg PO DAILY #14 tab 02/09/20 Allergies Allergy/AdvReac Type Severity Reaction Status Date / Time No Known Drug Allergies Allergy Verified 07/28/18 09:39 Review of Systems Review of Systems Narrative: GENERAL: Denies chills, fatigue, malaise, fever, sweats, travel HEENT: Denies sinus pain, ear pain, sore throat, difficulty swallowing, neck pain RESPIRATORY: Denies dyspnea, cough, wheezing, hemoptysis, sputum. CARDIOVASCULAR: Denies chest pain, palpitations, orthopnea, edema GASTROINTESTINAL: See HPI : Denies dysuria, frequency, incontinence, hematuria, urinary retention, flank pain. MUSCULOSKELETAL: Denies weakness, joint pain, or bony pain SKIN: No rash, no erythema, no pruritus NEUROLOGIC: Denies weakness, dizziness, headache, numbness, change in speech, confusion PSYCHIATRIC: No concerning psychosocial issues. 12 point review of systems is negative except for those stated above and HPI Patient History Medical History Healthy adult (Acute) Surgical History No pertinent past surgical history (Acute) Social History Smoking Status: Current every day smoker Smoking Status: Current every day smoker alcohol intake frequency: 0-2 drinks per day Substance Use Type: does not use Exam Initial Vital Signs Initial Vital Signs: Vital Signs Temperature 98.0 F 02/09/20 07:20 Pulse Rate 109 H 02/09/20 07:20 Respiratory Rate 18 02/09/20 07:20 Blood Pressure 141/92 H 02/09/20 07:20 Pulse Oximetry 98 02/09/20 07:20 GENERAL: Young male appears in pain shaking and in no acute distress. HEENT: Head atraumatic,EOMI, pupils reactive, face symmetric CARDIOVASCULAR: Regular rate and rhythm without murmurs, rubs or gallops. RESPIRATORY: Breath sounds equal bilaterally, no wheezes rales or rhonchi. ABDOMEN: Soft, tender umbilical area and right upper quadrant : No CVA tenderness EXTREMITIES: Normal range of motion, no clubbing or edema. Neurovascularly intact NEUROLOGICAL: Alert and oriented x4.Normal gait and speech. SKIN: Warm, dry, no laceration, no petechiae, no rashes or lesions. Course Orders Ordered: ED Orders 02/09/20 07:42 US abdomen limited Stat 02/09/20 07:45 Complete Blood Count AUTO DIFF Stat Comprehensive Metabolic Panel Stat Lipase Stat Discontinued Medications Hydromorphone HCl (Dilaudid) 0.5 mg IV NOW ONE Stop: 02/09/20 07:42 Last Admin: 02/09/20 08:02 Dose: 0.5 mg Documented by: CHIRAG Sodium Chloride (Normal Saline 0.9%) 1,000 mls @ 1,000 mls/hr IV CONT MARI Last Infusion: 02/09/20 09:32 Dose: 0 mls/hr Documented by: Admin: 02/09/20 08:02 Dose: 1,000 mls/hr Documented by: CHIRAG Ketorolac Tromethamine (Toradol) 30 mg IV NOW ONE Stop: 02/09/20 09:33 Last Admin: 02/09/20 09:39 Dose: 30 mg Documented by: CHIRAG Pantoprazole Sodium (Protonix) 40 mg IV NOW ONE Stop: 02/09/20 07:42 Last Admin: 02/09/20 08:02 Dose: 40 mg Documented by: CHIRAG Vital Signs Vital signs: Vital Signs - 8 hr 02/09/20 07:20 02/09/20 08:30 02/09/20 09:30 Temperature 98.0 F Pulse Rate 109 H 67 70 Respiratory Rate 18 17 20 Blood Pressure 141/92 H 127/60 153/83 H Pulse Oximetry 98 94 97 MDM - Abdominal Pain Lab Data Attestation: I reviewed the patient's lab results. Result diagrams: 02/09/20 07:45 02/09/20 07:45 Labs: Lab Results 02/09/20 02/09/20 Range/Units 07:45 07:45 WBC 12.0 H (4.5-11.0) X10^3/uL RBC 4.46 L (4.5-5.9) X10^6/uL Hgb 13.9 (13.5-17.5) g/dL Hct 40.7 L (41-53) % MCV 91.4 (80-100) fL MCH 31.2 (26-34) PG MCHC 34.1 (30-36) % RDW 12.9 (11.6-14.8) % Plt Count 199 (150-400) X10^3/uL Neut % (Auto) 82.4 H (50-75) % Lymph % (Auto) 12.0 L (25-40) % [place] % (Auto) 4.6 (3-14) % Eos % (Auto) 0.6 L (2-4) % Baso % (Auto) 0.4 (0-2) % Neut # (Auto) 9900 H (1712-0907) /uL Lymph # (Auto) 1400 (5794-7475) /uL [place] # (Auto) 600 (0-900) /uL Eos # (Auto) 100 (0-450) /uL Baso # (Auto) 100 (0-100) /uL Sodium 137 (137-145) mmol/L Potassium 4.2 (3.4-5.1) mmol/L Chloride 105 (98-107) mmol/L Carbon Dioxide 27 (22-32) mmol/L BUN 11 (9-20) mg/dL Creatinine 0.81 (0.66-1.25) mg/dL Estimated GFR > 60.0 (>60) mL/min BUN/Creatinine Ratio 13.6 (6-22) Glucose 104 H (70-100) mg/dL Calcium 9.6 (8.4-10.2) mg/dL Total Bilirubin 0.9 (0.2-1.3) mg/dL AST 28 (17-59) IU/L ALT 33 (<50) IU/L Alkaline Phosphatase 56 (38-126) U/L Total Protein 7.1 (6.3-8.2) g/dL Albumin 4.6 (3.5-5.0) g/dL Globulin 2.5 (1.7-4.1) g/dL Albumin/Globulin Ratio 1.8 (1.0-2.8) Lipase 73 D (23-300) U/L Imaging Data US - abdomen: Radiologist's Impression: PROCEDURE: US ABDOMEN LIMITED INDICATIONS: RIGHT UPPER QUADRANT PAIN TECHNIQUE: Real-time scanning was performed of the abdominal and retroperitoneal organs, with image documentation. COMPARISON: None. FINDINGS: Liver: Liver is normal in size and homogeneous in echotexture. Gallbladder: A small amount of sludge is seen in the dependent portion of the gallbladder without shadowing gallstones. Gallbladder wall is normal in thickness. Sonographic Cates sign is positive. Biliary ducts: Intrahepatic bile ducts are non-dilated. Extrahepatic bile duct caliber measures 4 mm. Normal is 6-7 mm or less in diameter, or 10 mm or less post-cholecystectomy. Pancreas: Visualized portions of the pancreas are sonographically normal. Miscellaneous: No free right upper quadrant fluid. IMPRESSION: 1. A small amount of sludge is seen in the gallbladder without gallbladder wall thickening or pericholecystic fluid. Sonographic Cates sign is positive. Findings are unlikely to represent acute cholecystitis, but correlation with exam findings and laboratory values is recommended. 2. Otherwise normal right upper quadrant ultrasound. Dictated by: Thomas Arthur M.D. on 02/09/2020 at 8:21 Approved by: Thomas Arthur M.D. on 02/09/2020 at 8:25 MDM Narrative Medical decision making narrative: Blood work is overall reassuring ultrasound reveals gallbladder sludge but no acute cholecystitis he has no elevated bilirubin or liver enzymes or fever to suggest acute cholecystitis. Patient has previously needed antibiotics for colitis he was previously on Flagyl and Cipro he said he did not tolerate Flagyl. At this may be a colitis. This also seems to happen right before he departs he supposed to leave again tomorrow for intense training he is asking for a no flying note. Unfortunately I will not be giving him a no find no. He also is requesting more Vicodin he says he only has 8 pills left, I have simply told him this will not be given to him. I recommend he have follow-up with GI if this continues he says at he did have a colonoscopy a year ago which apparently was negative. At this time will give him Augmentin for possible colitis however I believe this may be stress induced. Discharge Plan Departure Patient Disposition: Home Clinical Impression: Abdominal pain Qualifiers: Abdominal location: periumbilical Qualified Code(s): R10.33 - Periumbilical pain Discharge Date/Time: 02/09/20 09:47 Instructions: DI for Gastric Ulcer, DI for Acute Abdominal Pain Activity Restrictions/Additional Instructions: *You have been diagnosed with abdominal pain, this is possibility this is an ulcer *What to do: Recommend follow-up with GI, may need EGD and/or repeat colonoscopy. This is also possibility of an ulcer will put you on medication for an ulcer Avoid NSAIDS for a no fly no you will need to see physicians *Continue to take medications as directed Augmentin 1 tablet twice a day for 7 days for colitis Omeprazole 20 mg once a day 30 minutes prior to meal for 2 weeks *Follow up with your primary care provider in 2-3 days [and follow up with ortho, urology etc] *Return to ER if you should have [such as] [or] any new, worsening or concerning symptoms Prescriptions: New amoxicillin-pot clavulanate [Augmentin] 875-125 mg tablet 1 tab PO Q12H Qty: 14 RF: 0 omeprazole 20 mg tablet,delayed release (DR/EC) 20 mg PO DAILY Qty: 14 RF: 0 No Action dicyclomine 20 mg tablet 20 mg PO QID PRN (Reason: abdominal pain,cramps discomfort) Qty: 20 RF: 0 ondansetron HCl [Zofran] 4 mg tablet 4 mg PO Q6H PRN (Reason: nausea and vomiting) Qty: 15 RF: 0 hydrocodone-acetaminophen [[place]] 5-325 mg tablet 1 tab PO Q4-6H PRN (Reason: pain) Qty: 12 RF: 0 Referrals: [facility] [Provider Group] Stand Alone Forms: Work Release Note
[2020-02-09 08:00] LABS: Add Manual Diff / Slide Review NO; Basophils Absolute Auto 100 /uL (0-100); Basophils Percent Auto 0.4 % (0-2); Eosinophils Absolute Auto 100 /uL (0-450); Eosinophils Percent Auto 0.6 % (2-4); Hematocrit 40.7 % (41-53); Hemoglobin 13.9 g/dL (13.5-17.5); Lymphocytes Absolute Auto 1400 /uL (1100-4500); Mean Corpuscular HGB Conc 34.1 % (30-36); Mean Corpuscular Hemoglobin 31.2 PG (26-34); Mean Corpuscular Volume 91.4 fL (80-100); Monocytes Absolute Auto 600 /uL (0-900); Monocytes Percent Auto 4.6 % (3-14); Neutrophils Absolute Auto 9900 /uL (1500-7000); Neutrophils Percent Auto 82.4 % (50-75); Platelet Count 199 X10^3/uL (150-400); Red Blood Cell Count 4.46 X10^6/uL (4.5-5.9); Red Cell Distribution Width 12.9 % (11.6-14.8)
[2020-02-09] MEDS: HYDROMORPHONE 0.5 MG INJ IV (08:02)
[2020-02-09] MEDS: PANTOPRAZOLE 40 MG VIAL IV (08:02)
[2020-02-09] MEDS: SODIUM CHLORIDE 0.9% 1,000 ML 1000 ML IV (08:02)
[2020-02-09 08:06] LABS: Alanine Aminotransferase 33 IU/L (<50); Albumin 4.6 g/dL (3.5-5.0); Albumin Globulin Ratio 1.8 (1.0-2.8); Alkaline Phosphatase 56 U/L (38-126); Aspartate Aminotransferase 28 IU/L (17-59); BUN Creatinine Ratio 13.6 (6-22); Bilirubin Total 0.9 mg/dL (0.2-1.3); Blood Urea Nitrogen 11 mg/dL (9-20); Calcium 9.6 mg/dL (8.4-10.2); Carbon Dioxide 27 mmol/L (22-32); Chloride 105 mmol/L (98-107); Estimated Glomerular Filt Rate > 60.0 mL/min (>60); Globulin 2.5 g/dL (1.7-4.1); Glucose 104 mg/dL (70-100); HEMOLYSIS < 15 (0-50); Lipase 73 U/L (23-300); Potassium 4.2 mmol/L (3.4-5.1); Sodium 137 mmol/L (137-145); Total Protein 7.1 g/dL (6.3-8.2)
[2020-02-09 08:30] VITALS: BP 127/60; PULSE 67; RESP 17; O2SAT 94
[2020-02-09 09:30] VITALS: BP 153/83; PULSE 70; RESP 20; O2SAT 97
[2020-02-09] MEDS: KETOROLAC 60 MG/2 ML VIAL 30 MG IV (09:39)
== END 2020-02-09 09:47 | disposition home or self-care (01) ==
PROVIDERS: Emergency Provider Emergency Medicine
DX: R10.33 Periumbilical pain (principal)
CPT/HCPCS: 36415; 76705; 80053; 83690; 85025; C9113; J1170; J1885

== ENCOUNTER 2020-02-09 20:12 | Emergency (ER) | payer OTHER, SELFPAY ==
[2020-02-09 20:21] VITALS: BP 163/87; PULSE 80; RESP 18; TEMP 36.9; O2SAT 97
--- NOTE | 2020-02-09 20:24 | DI.RAD.S_ITS ---
PROCEDURE: XR ACUTE ABDOMEN SERIES INDICATIONS: Abdominal pain TECHNIQUE: One view chest and two views of the abdomen were acquired. COMPARISON: None. FINDINGS: Surgical changes and devices: Nipple piercings.. Chest: Lungs are clear. Heart size is normal. No pleural effusions. No pneumoperitoneum. Abdomen: Bowel gas pattern is normal. No suspicious calcifications. Visualized solid organ contours appear normal. Bones: No suspicious bony lesions. IMPRESSION: No acute disease process identified with no definite evidence of obstruction. No acute cardiopulmonary disease process. Dictated by: Kallie Patrick MD, PhD on 02/09/2020 at 20:53 Approved by: Kallie Patrick MD, PhD on 02/09/2020 at 20:53
--- NOTE | 2020-02-09 20:32 | ED_ITS ---
HPI - Abdominal Pain General Chief Complaint: Abdominal Pain Stated Complaint: ABD PAIN Time Seen by Provider: 02/09/20 20:13 Source: patient Mode of arrival: Ambulatory Limitations: no limitations History of Present Illness HPI narrative: 29yr old daily smoker with history of colitis presents with significant other for 3rd time in as many days. His pain started Sunday and not improving with pain meds and nausea meds. He continues to be largely centered around his umbilicus and comes in waves. He denies much in the way of provocation or palliation and denies any radiation. He has had a few episodes of nausea and vomiting and states that the hydrocodone he was given does not help. He has had very thorough evaluations including labs which were largely unremarkable, ultrasound and CT. There may have been a small amount of pericholecystic sludge but ultrasound was read to represent relatively normal findings. He denies constipation, diarrhea dysuria, frequency or urgency. MD complaint: abdominal pain Onset (ago): day(s) Pain Consistency: intermittent Location: periumbilical Severity: moderate Quality: cramping Radiation: none Migration to: no migration Relieving factors: nothing Exacerbating factors: nothing Context: foreign travel Associated symptoms: nausea and vomiting Related Data Previous Rx's Medication Instructions Recorded dicyclomine 20 mg PO QID PRN #20 tab 02/08/20 hydrocodone-acetaminophen [[place]] 1 tab PO Q4-6H PRN #12 tab 02/08/20 ondansetron HCl [Zofran] 4 mg PO Q6H PRN #15 tab 02/08/20 amoxicillin-pot clavulanate 1 tab PO Q12H #14 tab 02/09/20 [Augmentin] hyoscyamine sulfate 0.125 mg PO BID-QID PRN #20 tab 02/09/20 omeprazole 20 mg PO DAILY #14 tab 02/09/20 Allergies Allergy/AdvReac Type Severity Reaction Status Date / Time No Known Drug Allergies Allergy Verified 02/09/20 20:34 Review of Systems Constitutional Constitutional: Denies chills, Denies fatigue, Denies fever(s), Denies frequent falls, Denies lethargy and Denies weakness Eyes Eyes: Denies change in vision, Denies eye discharge, Denies irritation and Denies loss of vision ENT Ears, Nose, Mouth, and Throat: Denies change in voice, Denies dizziness, Denies neck pain, Denies sore throat and Denies throat swelling Cardiovascular Cardiovascular: Denies chest pain, Denies irregular heart rhythm, Denies lightheadedness, Denies palpitations, Denies dyspnea, Denies dyspnea on exertion and Denies orthopnea Respiratory Respiratory: Denies cough, Denies dyspnea, Denies dyspnea on exertion and Denies wheezing Gastrointestinal Gastrointestinal: Reports abdominal pain, Denies change in bowel habits, Denies diarrhea, Reports nausea and Reports vomiting Musculoskeletal Musculoskeletal: Denies neck pain and Denies numbness Integumentary/Breasts Skin/Breast: Denies pruritus, Denies erythema, Denies rash and Denies wounds Neurologic Neurologic: Denies behavioral changes, Denies confusion, Denies dizziness, Denies frequent falls, Denies loss of vision, Denies numbness and Denies weakness Psychiatric Psychiatric: Denies anxiety, Denies behavioral changes, Denies confusion, Denies depression, Denies homicidal ideation and Denies suicidal ideation Endocrine Endocrine: Denies fatigue, Denies flushing and Denies palpitations Hematologic/Lymphatic Hematologic/Lymphatic: Denies easy bruising Allergic/Immunologic Allergic/Immunologic: Denies urticaria, Denies throat swelling and Denies wheezing Patient History Medical History Healthy adult (Acute) Surgical History No pertinent past surgical history (Acute) Social History Smoking Status: Current every day smoker Smoking Status: Current every day smoker alcohol intake frequency: 0-2 drinks per day Substance Use Type: does not use Exam Narrative Exam Narrative: GENERAL: [29] year old patient appears stated age. Well-nour ished, well-developed patient, in moderate distress. HEAD: Atraumatic. Normocephalic. EYES: Pupils equal round and reactive. Extraocular motions intact. No scleral icterus. No injection or drainage. ENT: Nose without bleeding, purulent drainage. Throat without erythema, tonsillar hypertrophy or exudate. Airway patent. NECK: Trachea midline. Non tender CARDIOVASCULAR: Regular rate and rhythm without murmurs, gallops, or rubs. RESPIRATORY: Clear to auscultation. Breath sounds equal bilaterally. No wheezes, rales, or rhonchi. GASTROINTESTINAL: Abdomen soft, moderately tender to palpation in the periumbilical region, nondistended. EXTREMITIES: No edema or joint tenderness. BACK: Nontender without deformity or crepitance. No flank tenderness. NEURO: AOx3. SKIN: No rash or erythema of visible areas Initial Vital Signs Initial Vital Signs: Vital Signs Temperature 98.5 F 02/09/20 20:21 Pulse Rate 80 02/09/20 20:21 Respiratory Rate 18 02/09/20 20:21 Blood Pressure 163/87 H 02/09/20 20:21 Pulse Oximetry 97 02/09/20 20:21 Course Orders Ordered: ED Orders 02/09/20 20:20 C-Reactive Protein Quant Stat Complete Blood Count AUTO DIFF Stat Comprehensive Metabolic Panel Stat Lipase Stat 02/09/20 20:24 XR acute abdomen series Stat 02/09/20 21:15 Urinalysis and Microscopic Stat 02/09/20 21:35 CT abdomen pelvis w con Stat Ondansetron HCl (Zofran) 4 mg IV Q4HR PRN PRN Reason: Nausea And Vomiting Last Admin: 02/09/20 22:35 Dose: 4 mg Documented by: [email or web address] Admin: 02/09/20 20:34 Dose: 4 mg Documented by: IKE Discontinued Medications Hydrocodone Bitart/Acetaminophen (Vicodin 5/325 Prepack) 1 bottle MISC SEEINSTR ONE Stop: 02/09/20 23:21 Last Admin: 02/09/20 23:24 Dose: 1 bottle Documented by: SARATH Hydromorphone HCl (Dilaudid) 0.5 mg IV NOW ONE Stop: 02/09/20 22:14 Last Admin: 02/09/20 22:35 Dose: 0.5 mg Documented by: BECKY Sodium Chloride (Normal Saline 0.9%) 1,000 mls @ 1,000 mls/hr IV BOLUS ONE Stop: 02/09/20 21:21 Last Infusion: 02/09/20 21:55 Dose: 0 mls/hr Documented by: Admin: 02/09/20 20:34 Dose: 1,000 mls/hr Documented by: IKE Ketorolac Tromethamine (Toradol) 15 mg IV NOW ONE Stop: 02/09/20 20:23 Last Admin: 02/09/20 20:34 Dose: 15 mg Documented by: IKE Pantoprazole Sodium (Protonix) 40 mg IV NOW ONE Stop: 02/09/20 20:23 Last Admin: 02/09/20 20:35 Dose: 40 mg Documented by: IKE Reevaluation(s) Reevaluation #1: no improvement after Toradol or Protonix Reevaluation #2: Moderate improvement with Dilaudid Consultations Consultation #1: call to Dr. Hernandez to discuss case. Recommends out patient follow up with HIDA and possible EGD. Low fat diet. Vital Signs Vital signs: Vital Signs - 8 hr 02/09/20 20:21 02/09/20 21:30 02/09/20 22:17 Temperature 98.5 F Pulse Rate 80 62 67 Respiratory Rate 18 24 16 Blood Pressure 163/87 H 162/80 H 145/78 H Pulse Oximetry 97 97 98 02/09/20 22:40 Temperature Pulse Rate 59 L Respiratory Rate 20 Blood Pressure 143/93 H Pulse Oximetry 97 MDM - Abdominal Pain Lab Data Result diagrams: 02/09/20 20:20 02/09/20 20:20 Labs: Lab Results 02/09/20 02/09/20 02/09/20 Range/Units 20:20 20:20 20:20 WBC 10.2 (4.5-11.0) X10^3/uL RBC 4.35 L (4.5-5.9) X10^6/uL Hgb 13.6 (13.5-17.5) g/dL Hct 39.2 L (41-53) % MCV 90.1 (80-100) fL MCH 31.3 (26-34) PG MCHC 34.7 (30-36) % RDW 13.0 (11.6-14.8) % Plt Count 205 (150-400) X10^3/uL Neut % (Auto) 75.0 (50-75) % Lymph % (Auto) 20.0 L (25-40) % Ocean % (Auto) 4.3 (3-14) % Eos % (Auto) 0.5 L (2-4) % Baso % (Auto) 0.2 (0-2) % Neut # (Auto) 7700 H (3366-4580) /uL Lymph # (Auto) 2000 (4457-6243) /uL Ocean # (Auto) 400 (0-900) /uL Eos # (Auto) 0 (0-450) /uL Baso # (Auto) 0 (0-100) /uL Sodium 136 L (137-145) mmol/L Potassium 3.8 (3.4-5.1) mmol/L Chloride 105 (98-107) mmol/L Carbon Dioxide 23 (22-32) mmol/L BUN 12 (9-20) mg/dL Creatinine 0.75 (0.66-1.25) mg/dL Estimated GFR > 60.0 (>60) mL/min BUN/Creatinine Ratio 16.0 (6-22) Glucose 106 H (70-100) mg/dL Calcium 9.7 (8.4-10.2) mg/dL Total Bilirubin 0.9 (0.2-1.3) mg/dL AST 28 (17-59) IU/L ALT 32 (<50) IU/L Alkaline Phosphatase 55 (38-126) U/L C-Reactive Protein < 0.5 (<1.0) mg/dL Total Protein 7.1 (6.3-8.2) g/dL Albumin 4.6 (3.5-5.0) g/dL Globulin 2.5 (1.7-4.1) g/dL Albumin/Globulin Ratio 1.8 (1.0-2.8) Lipase 94 (23-300) U/L Urine Color Urine Appearance Urine pH (4.5-8.0) Ur Specific [place] (1.000-1.035) Urine Protein (Negative) Urine Glucose (UA) (Negative) g/dL Urine Ketones (NEGATIVE) Urine Occult Blood (Negative) Urine Nitrate (Negative) Urine Bilirubin (NEGATIVE) Urine Urobilinogen (0.2) E.U./dL Ur Leukocyte Esterase (NEGATIVE) Urine RBC (0-5/HPF) Urine WBC Urine Bacteria (None) Ur Culture Indicated? 02/09/20 Range/Units 21:15 WBC (4.5-11.0) X10^3/uL RBC (4.5-5.9) X10^6/uL Hgb (13.5-17.5) g/dL Hct (41-53) % MCV (80-100) fL MCH (26-34) PG MCHC (30-36) % RDW (11.6-14.8) % Plt Count (150-400) X10^3/uL Neut % (Auto) (50-75) % Lymph % (Auto) (25-40) % Ocean % (Auto) (3-14) % Eos % (Auto) (2-4) % Baso % (Auto) (0-2) % Neut # (Auto) (4074-1770) /uL Lymph # (Auto) (0949-2694) /uL Ocean # (Auto) (0-900) /uL Eos # (Auto) (0-450) /uL Baso # (Auto) (0-100) /uL Sodium (137-145) mmol/L Potassium (3.4-5.1) mmol/L Chloride (98-107) mmol/L Carbon Dioxide (22-32) mmol/L BUN (9-20) mg/dL Creatinine (0.66-1.25) mg/dL Estimated GFR (>60) mL/min BUN/Creatinine Ratio (6-22) Glucose (70-100) mg/dL Calcium (8.4-10.2) mg/dL Total Bilirubin (0.2-1.3) mg/dL AST (17-59) IU/L ALT (<50) IU/L Alkaline Phosphatase (38-126) U/L C-Reactive Protein (<1.0) mg/dL Total Protein (6.3-8.2) g/dL Albumin (3.5-5.0) g/dL Globulin (1.7-4.1) g/dL Albumin/Globulin Ratio (1.0-2.8) Lipase (23-300) U/L Urine Color Yellow Urine Appearance Clear Urine pH 7.5 (4.5-8.0) Ur Specific [place] 1.010 (1.000-1.035) Urine Protein Negative (Negative) Urine Glucose (UA) Negative (Negative) g/dL Urine Ketones 2+ H (NEGATIVE) Urine Occult Blood Trace-lysed (Negative) Urine Nitrate Negative (Negative) Urine Bilirubin Negative (NEGATIVE) Urine Urobilinogen 0.2 (0.2) E.U./dL Ur Leukocyte Esterase Negative (NEGATIVE) Urine RBC 0-1/hpf (0-5/HPF) Urine WBC Not Reportable Urine Bacteria None seen (None) Ur Culture Indicated? Cult not indicated Point of care testing: Urine Dip Bedside Urine Glucose Negative Bedside Urine Bilirubin - Negative Bedside Urine Ketone +++ 80 Urine Specific [place] 1.015 Bedside Urine Occult Blood +/- Bedside Urine pH 7.5 Bedside Urine Protein +/- 15 Bedside Urine Urobilinogen +/- 1mg Bedside Urine Nitrite - Negative Bedside Urine Leukocytes - Negative Esterase Imaging Data US - abdomen: Radiologist's Impression: [address] [address] Ultrasound Report Signed Patient: Lane Bhatti AMR#: [id number] : 1990Acct:[id number] Age/Sex: 29 / MDate of Service: 02/09/20 Loc: ED Accession Number: [id number] Procedure: US abdomen limited Ordering Provider: Aruna Garcia D.O. PROCEDURE: US ABDOMEN LIMITED INDICATIONS: RIGHT UPPER QUADRANT PAIN TECHNIQUE: Real-time scanning was performed of the abdominal and retroperitoneal organs, with image documentation. COMPARISON: None. FINDINGS: Liver: Liver is normal in size and homogeneous in echotexture. Gallbladder: A small amount of sludge is seen in the dependent portion of the gallbladder without shadowing gallstones. Gallbladder wall is normal in thickne ss. Sonographic Cates sign is positive. Biliary ducts: Intrahepatic bile ducts are non-dilated. Extrahepatic bile duct caliber measures 4 mm. Normal is 6-7 mm or less in diameter, or 10 mm or less post-cholecystectomy. Pancreas: Visualized portions of the pancreas are sonographically normal. Miscellaneous: No free right upper quadrant fluid. IMPRESSION: 1. A small amount of sludge is seen in the gallbladder without gallbladder wall thickening or pericholecystic fluid. Sonographic Cates sign is positive. Findings are unlikely to represent acute cholecystitis, but correlation with exam findings and laboratory values is recommended. 2. Otherwise normal right upper quadrant ultrasound. Dictated by: Thomas Arthur M.D. on 02/09/2020 at 8:21 Approved by: Thomas Arthur M.D. on 02/09/2020 at 8:25 CT scan - abdomen/pelvis: Radiologist's Impression: [address] [address] [address] Scan Report Signed Patient: Lane Bhatti AMR#: [id number] : 1990Acct:[id number] Age/Sex: 29 / MDate of Service: 02/08/20 Loc: ED Accession Number: [id number] Procedure: CT abdomen pelvis w con Ordering Provider: Quinten Whitney MD PROCEDURE: CT ABDOMEN PELVIS W CON INDICATIONS: hx of colitis, diffuse abdominal tenderness with guarding TECHNIQUE: After the administration of intravenous contrast, 5 mm thick sections acquired from the diaphragm to the symphysis. 5 mm coronal and sagittal reformats were acquired. For radiation dose reduction, the following was used: automated exposure control, adjustment of mA and/or kV according to patient size. COMPARISON: [facility], CT, CT ABDOMEN PELVIS W CON, 07/27/2018, 8:39. FINDINGS: Image quality: Excellent. ABDOMEN: Lung bases: Lung bases are clear. Heart size is normal. Solid organs: Liver is normal in size and enhancement. Gallbladder is within normal limits . Biliary system is non dilated. Pancreas enhances normally. Spleen is normal in size and enhancement. No adrenal nodules. Kidneys demonstrate normal size and enhancement, without hydronephrosis. Peritoneum and bowel: Bowel loops demonstrate normal wall thickness and caliber. No pneumoperitoneum. Small amount of free fluid within the pelvis. Normal appendix. Nodes and vessels: No retroperitoneal or mesenteric adenopathy by size criteria. Aorta and inferior vena cava are normal in size. Miscellaneous: No ventral hernias. PELVIS: Genitourinary: Bladder wall thickness is normal. Miscellaneous: No inguinal hernias or adenopathy. Bones: No suspicious bony lesions. No vertebral body compression fractures. IMPRESSION: 1. Small amount of free fluid within the pelvis, which is nonspecific, but may indicate peritoneal inflammation. 2. Normal appendix. 3. No evidence of colitis. Dictated by: Zaki Castelan M.D. on 02/08/2020 at 11:03 Approved by: Zaki Castelan M.D. on 02/08/2020 at 11:05 Discharge Plan Departure Patient Disposition: Home Clinical Impression: Abdominal pain Qualifiers: Abdominal location: periumbilical Qualified Code(s): R10.33 - Periumbilical pain Instructions: DI for Abdominal Pain-Adult Activity Restrictions/Additional Instructions: *You have been diagnosed with [periumbilical abdominal pain, very reassuring blood work and imaging. I consulted the surgeon chain sales consultant this evening and recommends outpatient workup with HIDA Scan to look at your gall bladder and possible EGD (scope of your upper GI tract)] *What to do: *Take medications as directed *Follow up with your primary care provider in 2-3 days, call for an appointment. Let them know you were seen in the Emergency Department and that we ask that you be seen in follow up *Return to ER if you should have any new, worsening or concerning symptoms *Please consume only a clear liquid diet for 24-48 hours and then a low fat diet moving forward Prescriptions: New hyoscyamine sulfate 0.125 mg tablet 0.125 mg PO BID-QID PRN (Reason: dyspepsia) Qty: 20 RF: 0 No Action dicyclomine 20 mg tablet 20 mg PO QID PRN (Reason: abdominal pain,cramps discomfort) Qty: 20 RF: 0 ondansetron HCl [Zofran] 4 mg tablet 4 mg PO Q6H PRN (Reason: nausea and vomiting) Qty: 15 RF: 0 hydrocodone-acetaminophen [[place]] 5-325 mg tablet 1 tab PO Q4-6H PRN (Reason: pain) Qty: 12 RF: 0 amoxicillin-pot clavulanate [Augmentin] 875-125 mg tablet 1 tab PO Q12H Qty: 14 RF: 0 omeprazole 20 mg tablet,delayed release (DR/EC) 20 mg PO DAILY Qty: 14 RF: 0 Referrals: Julio C Hernandez MD [Physician] -
[2020-02-09] MEDS: KETOROLAC 60 MG/2 ML VIAL 15 MG IV (20:34)
[2020-02-09] MEDS: ONDANSETRON 4 MG/2 ML INJ IV ×2 (20:34→22:35)
[2020-02-09] MEDS: SODIUM CHLORIDE 0.9% 1,000 ML 1000 ML IV (20:34)
[2020-02-09] MEDS: PANTOPRAZOLE 40 MG VIAL IV (20:35)
[2020-02-09 20:36] LABS: Add Manual Diff / Slide Review NO; Basophils Absolute Auto 0 /uL (0-100); Basophils Percent Auto 0.2 % (0-2); Eosinophils Absolute Auto 0 /uL (0-450); Eosinophils Percent Auto 0.5 % (2-4); Hematocrit 39.2 % (41-53); Hemoglobin 13.6 g/dL (13.5-17.5); Lymphocytes Absolute Auto 2000 /uL (1100-4500); Mean Corpuscular HGB Conc 34.7 % (30-36); Mean Corpuscular Hemoglobin 31.3 PG (26-34); Mean Corpuscular Volume 90.1 fL (80-100); Monocytes Absolute Auto 400 /uL (0-900); Monocytes Percent Auto 4.3 % (3-14); Neutrophils Absolute Auto 7700 /uL (1500-7000); Platelet Count 205 X10^3/uL (150-400); Red Blood Cell Count 4.35 X10^6/uL (4.5-5.9); White Blood Cell Count 10.2 X10^3/uL (4.5-11.0)
--- NOTE | 2020-02-09 20:40 | PC.NURSE ---
Pt requesting narcotic pain medications. Discussed that narcotics may actually be making pain worse r/t narcotic effect on gut, slowing, illeus etc.
[2020-02-09 20:51] LABS: Alanine Aminotransferase 32 IU/L (<50); Albumin 4.6 g/dL (3.5-5.0); Albumin Globulin Ratio 1.8 (1.0-2.8); Alkaline Phosphatase 55 U/L (38-126); Aspartate Aminotransferase 28 IU/L (17-59); Bilirubin Total 0.9 mg/dL (0.2-1.3); Blood Urea Nitrogen 12 mg/dL (9-20); Calcium 9.7 mg/dL (8.4-10.2); Carbon Dioxide 23 mmol/L (22-32); Chloride 105 mmol/L (98-107); Estimated Glomerular Filt Rate > 60.0 mL/min (>60); Globulin 2.5 g/dL (1.7-4.1); Glucose 106 mg/dL (70-100); HEMOLYSIS < 15 (0-50); Potassium 3.8 mmol/L (3.4-5.1); Sodium 136 mmol/L (137-145); Total Protein 7.1 g/dL (6.3-8.2)
[2020-02-09 20:53] LABS: C-Reactive Protein Quant < 0.5 mg/dL (<1.0)
[2020-02-09 21:30] VITALS: BP 162/80; PULSE 62; RESP 24; O2SAT 97
--- NOTE | 2020-02-09 21:35 | DI.CT.S_ITS ---
PROCEDURE: CT ABDOMEN PELVIS W CON INDICATIONS: worsening abdominal pain TECHNIQUE: After the administration of intravenous contrast, 5 mm thick sections acquired from the diaphragm to the symphysis. 5 mm coronal and sagittal reformats were acquired. For radiation dose reduction, the following was used: automated exposure control, adjustment of mA and/or kV according to patient size. COMPARISON: [facility], US, US ABDOMEN LIMITED, 02/09/2020, 8:04. [facility], CT, CT ABDOMEN PELVIS W CON, 07/27/2018, 8:39. [facility], CT, CT ABDOMEN PELVIS W CON, 07/22/2018, 21:50. [facility], CT, CT ABDOMEN PELVIS W CON, 02/08/2020, 11:30. FINDINGS: Image quality: Excellent. ABDOMEN: Lung bases: Lung bases are clear. Heart size is normal. Solid organs: Liver is normal in size and enhancement. Gallbladder may contain sludge. Biliary system is non dilated. Pancreas enhances normally. Spleen is normal in size and enhancement. No adrenal nodules. Kidneys demonstrate normal size and enhancement, without hydronephrosis. Peritoneum and bowel: Bowel loops demonstrate normal wall thickness and caliber. Appendix is normal. There is a small amount of free fluid in pelvis. No free air. Nodes and vessels: No retroperitoneal or mesenteric adenopathy by size criteria. Aorta and inferior vena cava are normal in size. Miscellaneous: No ventral hernias. PELVIS: Genitourinary: Bladder wall thickness is normal. There is a small amount of free fluid in pelvis. Miscellaneous: No inguinal hernias or adenopathy. Bones: No suspicious bony lesions. No vertebral body compression fractures. IMPRESSION: 1. A small amount of free fluid in pelvis. A etiology is not identified. 2. Normal appendix. 3. No acute intra-abdominal process identified. No significant discrepancy with the [facility] preliminary report. Dictated by: Kendal Hernandez M.D. on 02/10/2020 at 7:29 Approved by: Kendal Hernandez M.D. on 02/10/2020 at 7:35
[2020-02-09 21:44] LABS: Bacteria Urine None Seen
[2020-02-09 21:48] LABS: Appearance Urine UA CLEAR; Bilirubin Urine UA NEGATIVE (NEGATIVE); Color Urine UA YELLOW; Glucose Urine UA NEGATIVE (Negative); Ketones Urine UA 2+ (NEGATIVE); Leukocyte Esterase Urine UA NEGATIVE (NEGATIVE); Nitrite Urine UA NEGATIVE (Negative); Occult Blood Urine UA TRACE-LYSED (Negative); Protein Urine UA NEGATIVE (Negative); Urobilinogen Urine UA 0.2 E.U./dL (0.2); pH Urine UA 7.5 (4.5-8.0)
[2020-02-09 21:55] LABS: Culture Indicated Urine Cult Not Indicated; RBC Urine 0-1/HPF (0-5/HPF)
[2020-02-09 22:17] VITALS: BP 145/78; PULSE 67; RESP 16; O2SAT 98
[2020-02-09] MEDS: HYDROMORPHONE 0.5 MG INJ IV (22:35)
[2020-02-09 22:40] VITALS: BP 143/93; PULSE 59; RESP 20; O2SAT 97
[2020-02-09 23:08] LABS: Lipase 94 U/L (23-300)
[2020-02-09] MEDS: HYDROCODONE/ACET 5/325 PREPACK 1 BOTTLE MISC (23:24)
[2020-02-09 23:27] VITALS: BP 152/99; PULSE 61; RESP 16; TEMP 36.9; O2SAT 96
== END 2020-02-09 23:27 | disposition home or self-care (01) ==
PROVIDERS: Emergency Provider Emergency Medicine
DX: R10.33 Periumbilical pain (principal); R11.2 Nausea with vomiting, unspecified; Z87.19 Personal history of other diseases of the digestive system
CPT/HCPCS: 36415; 74022; 74177; 76705; 80053; 81001; 81003; 83690; 85025; 86140; 96361; 96374; 96375; 96376; 99284; C9113; J1170; J1885; J2405; Q9967

== ENCOUNTER → 2020-02-12 14:35 | Outpatient (CLI) | payer OTHER, SELFPAY ==
--- NOTE | 2020-02-12 14:37 | DI.NM.S_ITS ---
PROCEDURE: NM HIDA WITH CCK PHARMACEUTICAL: 5.1 mCi Tc-99m mebrofenin IV; 1.3 mcg CCK IV. INDICATIONS: abdominal pain TECHNIQUE: Following intravenous administration of Tc-99m mebrofenin, sequential anterior abdominal images were obtained. To evaluate the contractile response of the gallbladder in response to Cholecystokinin (CCK), sincalide (0.02 ?g/kg) was administered by slow intravenous infusion approximately 60 minutes after the administration of the radiopharmaceutical. Sequential imaging was continued for 30 minutes after the start of CCK infusion. Gallbladder ejection fraction was calculated. COMPARISON: None. FINDINGS: Biliary scan: There is normal tracer uptake and excretion by the liver. There is normal visualization of the intrahepatic ducts, common bile duct, and gallbladder. There is normal tracer transit into the duodenum. CCK stimulation: There is normal contractile response of the gallbladder to CCK infusion. The calculated gallbladder ejection fraction is 84% ; normal values are above 35%. It has been shown that any patient abdominal pain after CCK administration is related to the rate of CCK injection, rather than to any underlying gallbladder disease (Clinical Nuclear Medicine 2012; 37: 63-70. Journal of Nuclear Medicine 2014; 55: 1-9). IMPRESSION: Normal HIDA scan. No gallbladder dyskinesis. Dictated by: Magda Zimmer M.D. on 02/12/2020 at 17:08 Approved by: Magda Zimmer M.D. on 02/12/2020 at 17:11
== END ==
PROVIDERS: Referring Provider Specialist; Visit Provider Specialist
DX: R10.9 Unspecified abdominal pain (principal)
CPT/HCPCS: 78227; A9537; J2805

== ENCOUNTER 2020-02-19 09:46 | Day surgery (SDC) | payer OTHER, SELFPAY ==
[2020-02-19] VITALS (11 sets, daily range): BP systolic 96–131; BP diastolic 59–78; PULSE 51–76; RESP 12–18; TEMP 36.1–37.3; O2SAT 94–98; BMI 23.1
--- NOTE | 2020-02-19 | PATH_ITS ---
[facility] Accession Number: [id number] . 01 Material submitted: . PART A: esophagus, E-G Junction - GE JUNCTION BIOPSY PART B: stomach - PROXIMAL STOMACH BIOPSY . 02 Diagnosis: A. Gastroesophageal Junction, Biopsy: Squamocolumnar junctional mucosa with no diagnostic abnormality. Negative for intestinal metaplasia. Negative for dysplasia and malignancy. . B. Proximal Stomach, Biopsy: Body-type mucosa with no diagnostic abnormality. Negative for Helicobacter by immunohistochemistry. Negative for intestinal metaplasia. Negative for dysplasia and malignancy. [facility] 02/24/2020 1524 Local . 02 Electronically signed: . Lela Villagran MD, Pathologist NPI- [id number] . 01 Gross description: . Part A: GE JUNCTION BIOPSY: Received in formalin are 2 fragment(s) of mccracken, soft tissue measuring 0.5 x 0.3 x 0.1 cm to 0.2 x 0.2 x 0.2 cm submitted entirely in 1 cassette(s) Part B: PROXIMAL STOMACH BIOPSY: Received in formalin are 4 fragment(s) of mccracken, soft tissue measuring 0.3 x 0.2 x 0.2 cm to 0.2 x 0.1 x 0.1 cm submitted entirely in 1 cassette(s) /[facility] 02/20/2020 0742 Local . 02 Microscopic: . A. An alcian blue stain was performed to evaluate for intestinal metaplasia and is negative. The control stain showed appropriate reactivity. . B. An immunohistochemical stain was performed to evaluate for Helicobacter organisms and is negative. The control stain showed appropriate reactivity. . * This test was developed and its performance characteristics determined by [facility]. It has not been cleared or approved by the U.S. Food and Drug Administration. The FDA has determined that such clearance or approval is not necessary. This test is used for clinical purposes. It should not be regarded as investigational or for research. . 02 Pathologist provided ICD-10: R10.9 . 02 CPT . 822713, 971025, 543411, O02410 Performed at: 01 [facility] [address] [id number] MD Andry Cornejo MD Phone: [phone] Performed at: 02 [facility] [address] [place] [id number] MD Lela Villagran MD Phone: [phone]
[2020-02-19] MEDS: LACTATED RINGERS 1,000 ML 200 ML IV (10:37)
[2020-02-19 11:20] LABS: COVID19 -Nasal RAPID Negative (Negative)
--- NOTE | 2020-02-19 11:21 | PM.PREOP ---
Pre-operative Note COVID-19 COVID-19 status: Negative Result date/Date tested (Pos, Neg/Pending): 02/19/20 Interval Note History & Physical reviewed/Exam performed by Physician: Yes Changes to H&P: No ASA Class (for procedural sedation): I
[2020-02-19] MEDS: LIDOCAINE 4% SOLN 50 ML 20 ML TOP (11:35)
[2020-02-19] MEDS: MIDAZOLAM 5 MG/5 ML VIAL IV (12:04)
[2020-02-19] MEDS: fentaNYL 250 MCG/5 ML INJ IV (12:04)
--- NOTE | 2020-02-19 12:19 | PM.OP.ENDO ---
Operative Date/Time/Diagnoses Date of procedure: 02/19/20 Time of procedure: 12:19 Pre-op diagnosis: Abdominal pain uncertain etiology. Post-op diagnosis: other (Esophageal linear ulcer. Mild discrete gastritis. Normal colonoscopy.) Procedure & Clinicians Study performed: EGD with cold biopsy. Colonoscopy. Same procedure as scheduled: Yes Indications: Patient with abdominal pain cause unclear. Two CT scans, and ultrasound nondiagnostic (? gallbladder sludge. Small amount of free fluid in pelvis). Absolutely normal HIDA with CCK stimulation. Surgeon: Julio C Hernandez Procedure Notes SCOAP/Timeout: Performed Procedure in detail: The patient had topical anesthetic applied to oropharynx. She was placed in left lateral decubitus position and underwent IV sedation directed by the surgeon consisting of fentanyl and Versed. A bite block was inserted and the scope was advanced through it into the esophagus. The esophagus was unremarkable. GE junction was noted at 42 cm from the incisors. There was a linear ulcer starting at the GE junction and going up the esophagus for about 3 cm. . The stomach insufflated well. There were no lesions seen in the body, antrum or at the incisura. The pyloric channel was widely patent. The duodenum was unremarkable to the 4th part. The scope was brought back into the stomach and retroflexed. The proximal stomach had a discrete area of inflammation which I biopsied.. The scope was straightened and brought out through the esophagus again. Biopsies were taken of the linear ulcer. No other lesions were seen. The scope was removed and the patient tolerated the procedure well. The patient was placed in the left lateral decubitus position and underwent additional IV sedation directed by the surgeon consisting of fentanyl and Versed. Digital exam was unremarkable. Sphincter tone was normal. Prostate is flat.. The scope was inserted and advanced through the rectum into the sigmoid, descending, transverse, and ascending colon. The patient had an unusually tortuous colon for someone so young without prior operation, but other than tortuosity nothing else was noted. Pressure was applied.. The cecum was reached identified by the ileocecal valve and the appendiceal opening. The ileocecal valve was successfully cannulated. The terminal ileum was normal in appearance. The scope was gradually brought out. No Polyps or other lesions were found. The scope ultimately was retroflexed in the rectum. The appearance was normal. The scope was removed and the patient tolerated the procedure well. The prep was very good. Please note that any repeat endoscopy or colonoscopy might be better performed with the use of propofol. Patient required a large amount of Versed (16 mg) and fentanyl (600mcg)to perform these procedures and keep him comfortable and not moving. Scope withdrawal time: Almost 7 minutes Sedation minutes: 40 Findings: gastritis (Discrete area of inflammation in the stomach.) and other findings (Linear esophageal ulcer distal esophagus.) Specimen(s): other (Gastric biopsies. Esophageal ulcer biopsies.) Complications: none Post-procedure Recommendations: Continue medication(s) (Will increase omeprazole to 20 mg twice a day.) Plan for aftercare: Follow-up with physicians.(patient is about [place] another state[place] Follow up: months (One) Disposition: PACU
--- NOTE | 2020-02-19 12:50 | SUR.PHASEII ---
monitoring pt on monitor because he was given so much medication in endoscopy. Pt sleeping and he is in sinus mechelle . Respirations even and unlabored.
== END 2020-02-19 14:23 | disposition home or self-care (01) ==
PROVIDERS: Referring Provider Specialist; Visit Provider Specialist
PROC: 0DJ08ZZ Inspection of Upper Intestinal Tract, Via Natural or Artificial Opening Endoscopic (ICD-10-PCS; CPT 43235; principal; 2020-02-19 11:45)
PROC: 0DJD8ZZ Inspection of Lower Intestinal Tract, Via Natural or Artificial Opening Endoscopic (ICD-10-PCS; CPT 45378; 2020-02-19 11:45)
DX: K22.10 Ulcer of esophagus without bleeding (principal); F17.210 Nicotine dependence, cigarettes, uncomplicated; Z11.59 Encounter for screening for other viral diseases; K29.70 Gastritis, unspecified, without bleeding
CPT/HCPCS: 43239; 45378; 87635; 99152; 99153; J2250; J3010

== ENCOUNTER 2020-02-21 08:44 | Emergency (ER) | payer OTHER, SELFPAY ==
[2020-02-21 08:57] VITALS: BP 121/68; PULSE 72; RESP 22; TEMP 36.5; O2SAT 96; BMI 23.1
--- NOTE | 2020-02-21 10:34 | ED.ABDPAIN ---
HPI - Abdominal Pain General Chief Complaint: Abdominal Pain Stated Complaint: Extreme abdominal pain, has ulcer, vomiting Time Seen by Provider: 02/21/20 10:34 Source: patient Mode of arrival: Ambulatory Limitations: no limitations History of Present Illness HPI narrative: The patient presents with severe abdominal pain, starting about 4:00 a.m.. The pain woke him from sleep. He has had vomiting, no hematemesis. Pain is primarily epigastric in nature, does not radiate. He has no URI symptoms, no cough or dyspnea. He has no fever. With the upper GI symptoms he has no diarrhea. His BMs have been normal. He underwent endoscopy 2 days ago and gastritis as well as an esophageal ulcer or found. He is currently taking omeprazole. He smokes about 1/2 pack of cigarettes daily. His last alcohol intake was 3 weeks ago. He has a history of marijuana use, he denies current drug use. He has no other chronic medical issues. Related Data Previous Rx's Medication Instructions Recorded dicyclomine 20 mg PO QID PRN #20 tab 02/08/20 ondansetron HCl 4 mg tablet 4 mg PO Q6H PRN #15 tab 02/11/20 omeprazole 20 mg PO BID #120 cap 02/19/20 omeprazole 20 mg PO BID #60 cap 02/21/20 oxycodone-acetaminophen [Percocet] 1 tab PO Q6-8H PRN #6 tab 02/21/20 Allergies Allergy/AdvReac Type Severity Reaction Status Date / Time No Known Drug Allergies Allergy Verified 02/11/20 11:22 Review of Systems Review of Systems ROS Unobtainable: All systems reviewed & are unremarkable except as noted in HPI and below Constitutional Constitutional: Denies chills, Denies fever(s) and Denies weakness Eyes Comments: No complaints ENT Ears, Nose, Mouth, and Throat: Denies sore throat Cardiovascular Cardiovascular: Denies chest pain, Denies lightheadedness, Denies dyspnea and Denies orthopnea Respiratory Respiratory: Denies cough and Denies dyspnea Gastrointestinal Gastrointestinal: Reports as per HPI Genitourinary Genitourinary: Denies dysuria and Denies genital pain Genitourinary: Denies dysuria Musculoskeletal Musculoskeletal: Denies back pain Integumentary/Breasts Skin/Breast: Denies erythema and Denies rash Neurologic Neurologic: Denies weakness Psychiatric Psychiatric: Denies anxiety and Denies depression Patient History Medical History (Updated 02/21/20 @ 14:33 by Tank Macario MD) Esophageal ulcer (Acute) Gastritis (Acute) Healthy adult (Acute) Normal colonoscopy (Acute) Surgical History (Updated 02/21/20 @ 10:47 by Tank Macario MD) History of esophagogastroduodenoscopy (EGD) (Acute) No pertinent past surgical history (Acute) Social History household members: spouse and family Smoking Status: Current every day smoker Smoking Status: Current every day smoker alcohol intake frequency: a few times a week Substance Use Type: does not use Exam Initial Vital Signs Initial Vital Signs: Vital Signs Temperature 97.7 F 02/21/20 08:57 Pulse Rate 72 02/21/20 08:57 Respiratory Rate 22 02/21/20 08:57 Blood Pressure 121/68 02/21/20 08:57 Pulse Oximetry 96 02/21/20 08:57 Const General: cooperative and well developed Nutritional Appearance: well nourished Other: Obviously uncomfortable. HENMT Head: normocephalic and atraumatic Mouth: oral mucosae normal and moist mucous membranes Throat: posterior oropharynx normal Eyes Conjunctivae: conjunctivae normal Resp Effort & Inspection: normal respiratory effort and able to speak in complete sentences Auscultation: clear to auscultation bilaterally, no rales, no rhonchi and no wheezes Cardio Rate: regular rate Rhythm: regular rhythm Heart Sounds: no click, no gallops, no murmurs and no rubs Pulses: normal peripheral pulses GI Other: Epigastric tenderness with guarding. No distention. No masses. Normal bowel sounds. Back/Spine/Pelvis Back: No CVA tenderness Skin General: no rashes or lesions noted Neuro General: patient alert, patient oriented x3, gait normal and no focal motor deficits Speech: speech normal Extrem General: full ROM and no clubbing, cyanosis or edema Psych Appearance: well kempt Mental Status: mental status grossly normal Attitude: cooperative Thought Content: normal and suicidality Judgment: judgment good Course Course Course Narrative: The patient has initially improved after receiving IV pain meds as well as Protonix. He was able to rest comfortably. When I re-entered the room he was shaking, complaining of pain once again. Advised him to double his omeprazole for 1 week. I did prescribe enough Percocet for 1-2 days. He should avoid tobacco. He should follow up with his own doctor for repeat evaluation within the next week. He is supposed to go to a camp sometime next week. He thinks this may be an issue, again, he is advised to follow with his own doctor. Orders Ordered: ED Orders 02/21/20 10:00 Urine Microscopic Stat 02/21/20 10:22 EKG-12 Lead Stat 02/21/20 10:50 Complete Blood Count AUTO DIFF Stat Comprehensive Metabolic Panel Stat Lipase Stat Partial Thromboplastin Time Stat Prothrombin Time INR Stat Discontinued Medications Al Hydrox/Mg Hydrox/Simethicone 40 ml/ Lidocaine HCl 15 ml 0 ml PO NOW ONE Stop: 02/21/20 11:47 Last Admin: 02/21/20 11:50 Dose: 55 ml Documented by: IKE Hydromorphone HCl (Dilaudid) 1 mg IV NOW ONE Stop: 02/21/20 10:41 Last Admin: 02/21/20 11:07 Dose: 1 mg Documented by: MIKE Sodium Chloride (Normal Saline 0.9%) 1,000 mls @ 1,000 mls/hr IV BOLUS ONE Stop: 02/21/20 11:39 Last Infusion: 02/21/20 12:56 Dose: 0 mls/hr Documented by: Admin: 02/21/20 11:06 Dose: 1,000 mls/hr Documented by: MIKE Ondansetron HCl (Zofran) 4 mg IV NOW ONE Stop: 02/21/20 10:41 Last Admin: 02/21/20 11:07 Dose: 4 mg Documented by: MIKE Oxycodone/Acetaminophen (Percocet 5/325) 1 tab PO NOW ONE Stop: 02/21/20 14:14 Last Admin: 02/21/20 14:23 Dose: 1 tab Documented by: IKE Pantoprazole Sodium (Protonix) 40 mg IV NOW ONE Stop: 02/21/20 10:41 Last Admin: 02/21/20 11:40 Dose: 40 mg Documented by: IKE Vital Signs Vital signs: Vital Signs - 8 hr 02/21/20 08:57 02/21/20 11:13 02/21/20 12:00 Temperature 97.7 F Pulse Rate 72 61 57 L Respiratory Rate 22 27 H 12 Blood Pressure 121/68 138/70 Pulse Oximetry 96 98 02/21/20 14:00 Temperature Pulse Rate 61 Respiratory Rate 12 Blood Pressure 143/72 H Pulse Oximetry 98 MDM - Abdominal Pain Lab Data Result diagrams: 02/21/20 10:50 02/21/20 10:50 Labs: Lab Results 02/21/20 02/21/20 02/21/20 Range/Units 10:00 10:50 10:50 WBC 10.6 (4.5-11.0) X10^3/uL RBC 4.55 (4.5-5.9) X10^6/uL Hgb 14.3 (13.5-17.5) g/dL Hct 41.4 (41-53) % MCV 91.0 (80-100) fL MCH 31.5 (26-34) PG MCHC 34.6 (30-36) % RDW 12.6 (11.6-14.8) % Plt Count 191 (150-400) X10^3/uL Neut % (Auto) 90.6 H (50-75) % Lymph % (Auto) 7.6 L (25-40) % Tyrrell % (Auto) 1.5 L (3-14) % Eos % (Auto) 0.1 L (2-4) % Baso % (Auto) 0.2 (0-2) % Neut # (Auto) 9600 H (5976-8042) /uL Lymph # (Auto) 800 L (4648-9166) /uL Tyrrell # (Auto) 200 (0-900) /uL Eos # (Auto) 0 (0-450) /uL Baso # (Auto) 0 (0-100) /uL PT 12.3 (10.1-12.7) SECONDS INR 1.1 (0.9-1.3) APTT 36 (26.4-36.2) SECONDS Sodium (137-145) mmol/L Potassium (3.4-5.1) mmol/L Chloride (98-107) mmol/L Carbon Dioxide (22-32) mmol/L BUN (9-20) mg/dL Creatinine (0.66-1.25) mg/dL Estimated GFR (>60) mL/min BUN/Creatinine Ratio (6-22) Glucose (70-100) mg/dL Calcium (8.4-10.2) mg/dL Total Bilirubin (0.2-1.3) mg/dL AST (17-59) IU/L ALT (<50) IU/L Alkaline Phosphatase (38-126) U/L Total Protein (6.3-8.2) g/dL Albumin (3.5-5.0) g/dL Globulin (1.7-4.1) g/dL Albumin/Globulin Ratio (1.0-2.8) Lipase (23-300) U/L Urine RBC None seen (0-5/HPF) Urine WBC None seen (0-5/HPF) Urine Bacteria None seen (None) Ur Culture Indicated? Cult not indicated 02/21/20 Range/Units 10:50 WBC (4.5-11.0) X10^3/uL RBC (4.5-5.9) X10^6/uL Hgb (13.5-17.5) g/dL Hct (41-53) % MCV (80-100) fL MCH (26-34) PG MCHC (30-36) % RDW (11.6-14.8) % Plt Count (150-400) X10^3/uL Neut % (Auto) (50-75) % Lymph % (Auto) (25-40) % Tyrrell % (Auto) (3-14) % Eos % (Auto) (2-4) % Baso % (Auto) (0-2) % Neut # (Auto) (3620-9535) /uL Lymph # (Auto) (6187-3796) /uL Tyrrell # (Auto) (0-900) /uL Eos # (Auto) (0-450) /uL Baso # (Auto) (0-100) /uL PT (10.1-12.7) SECONDS INR (0.9-1.3) APTT (26.4-36.2) SECONDS Sodium 137 (137-145) mmol/L Potassium 4.3 (3.4-5.1) mmol/L Chloride 103 (98-107) mmol/L Carbon Dioxide 25 (22-32) mmol/L BUN 12 (9-20) mg/dL Creatinine 0.77 (0.66-1.25) mg/dL Estimated GFR > 60.0 (>60) mL/min BUN/Creatinine Ratio 15.6 (6-22) Glucose 105 H (70-100) mg/dL Calcium 10.2 (8.4-10.2) mg/dL Total Bilirubin 0.7 (0.2-1.3) mg/dL AST 27 (17-59) IU/L ALT 25 (<50) IU/L Alkaline Phosphatase 57 (38-126) U/L Total Protein 7.7 (6.3-8.2) g/dL Albumin 5.0 (3.5-5.0) g/dL Globulin 2.7 (1.7-4.1) g/dL Albumin/Globulin Ratio 1.9 (1.0-2.8) Lipase 107 (23-300) U/L Urine RBC (0-5/HPF) Urine WBC (0-5/HPF) Urine Bacteria (None) Ur Culture Indicated? Point of care testing: Urine Dip Bedside Urine Glucose Negative Bedside Urine Bilirubin - Negative Bedside Urine Ketone +++ 80 Urine Specific [place] 1.015 Bedside Urine Occult Blood +/- Bedside Urine pH 6.5 Bedside Urine Protein - Negative Bedside Urine Urobilinogen - Negative Bedside Urine Nitrite - Negative Bedside Urine Leukocytes - Negative Esterase ECG Data Attestation: I personally reviewed and interpreted this ECG as follows: (Normal sinus rhythm rate 66 beats per minute. Right ventricular conduction delay. No ectopy. No acute ST T wave change.) Discharge Plan Departure Patient Disposition: Home Clinical Impression: Esophageal ulcer Qualifiers: Esophageal ulcer bleeding: without bleeding Qualified Code(s): K22.10 - Ulcer of esophagus without bleeding Instructions: DI for Esophageal Ulcer Activity Restrictions/Additional Instructions: Double your omeprazole for the next week. Percocet 1 tablet every 6-8 hours as needed for pain control. Avoid tobacco use, this can be the cause of ulcers. Follow-up with your regular doctor for repeat evaluation within the week. Return to ER as necessary pain Prescriptions: New oxycodone-acetaminophen [Percocet] 5-325 mg tablet 1 tab PO Q6-8H PRN (Reason: pain) Qty: 6 RF: 0 omeprazole 20 mg capsule,delayed release(DR/EC) 20 mg PO BID Qty: 60 RF: 0 No Action ondansetron HCl [Zofran] 4 mg tablet 4 mg PO Q6H PRN (Reason: nausea and vomiting) Qty: 15 RF: 0 dicyclomine 20 mg tablet 20 mg PO QID PRN (Reason: abdominal pain,cramps discomfort) Qty: 20 RF: 0 omeprazole 20 mg capsule,delayed release(DR/EC) 20 mg PO BID Qty: 120 RF: 2
[2020-02-21 10:41] LABS: Bacteria Urine None Seen; RBC Urine None Seen (0-5/HPF); WBC Urine None Seen (0-5/HPF)
[2020-02-21 11:06] LABS: Culture Indicated Urine Cult Not Indicated
[2020-02-21] MEDS: SODIUM CHLORIDE 0.9% 1,000 ML 1000 ML IV (11:06)
[2020-02-21] MEDS: HYDROMORPHONE 1 MG INJ IV (11:07)
[2020-02-21] MEDS: ONDANSETRON 4 MG/2 ML INJ IV (11:07)
[2020-02-21 11:10] LABS: Add Manual Diff / Slide Review NO; Basophils Absolute Auto 0 /uL (0-100); Basophils Percent Auto 0.2 % (0-2); Eosinophils Absolute Auto 0 /uL (0-450); Eosinophils Percent Auto 0.1 % (2-4); Hematocrit 41.4 % (41-53); Hemoglobin 14.3 g/dL (13.5-17.5); Lymphocytes Absolute Auto 800 /uL (1100-4500); Lymphocytes Percent Auto 7.6 % (25-40); Mean Corpuscular HGB Conc 34.6 % (30-36); Mean Corpuscular Hemoglobin 31.5 PG (26-34); Monocytes Absolute Auto 200 /uL (0-900); Monocytes Percent Auto 1.5 % (3-14); Neutrophils Absolute Auto 9600 /uL (1500-7000); Neutrophils Percent Auto 90.6 % (50-75); Platelet Count 191 X10^3/uL (150-400); Red Blood Cell Count 4.55 X10^6/uL (4.5-5.9); Red Cell Distribution Width 12.6 % (11.6-14.8); White Blood Cell Count 10.6 X10^3/uL (4.5-11.0)
[2020-02-21 11:13] VITALS: PULSE 61; RESP 27; O2SAT 98
--- NOTE | 2020-02-21 11:14 | PC.NURSE ---
Pt denies diarrhea and denies blood in emesis
[2020-02-21 11:27] LABS: INR 1.1 (0.9-1.3); Prothrombin Time 12.3 SECONDS (10.1-12.7)
[2020-02-21 11:30] LABS: PTT Partial Thromboplastin Tim 36 SECONDS (26.4-36.2)
[2020-02-21 11:32] LABS: Alanine Aminotransferase 25 IU/L (<50); Albumin Globulin Ratio 1.9 (1.0-2.8); Alkaline Phosphatase 57 U/L (38-126); Aspartate Aminotransferase 27 IU/L (17-59); BUN Creatinine Ratio 15.6 (6-22); Bilirubin Total 0.7 mg/dL (0.2-1.3); Blood Urea Nitrogen 12 mg/dL (9-20); Calcium 10.2 mg/dL (8.4-10.2); Carbon Dioxide 25 mmol/L (22-32); Chloride 103 mmol/L (98-107); Estimated Glomerular Filt Rate > 60.0 mL/min (>60); Globulin 2.7 g/dL (1.7-4.1); Glucose 105 mg/dL (70-100); HEMOLYSIS 17 (0-50); Lipase 107 U/L (23-300); Potassium 4.3 mmol/L (3.4-5.1); Sodium 137 mmol/L (137-145); Total Protein 7.7 g/dL (6.3-8.2)
[2020-02-21] MEDS: PANTOPRAZOLE 40 MG VIAL IV (11:40)
[2020-02-21] MEDS: MAG HYDROX/ALUMINUM/SIMETH SUS 40 ML, LIDOCAINE VISCOUS 2% 15 ML PO (11:50)
[2020-02-21 12:00] VITALS: BP 138/70; PULSE 57; RESP 12
[2020-02-21 14:00] VITALS: BP 143/72; PULSE 61; RESP 12; O2SAT 98
[2020-02-21] MEDS: OXYCODONE/ACETAMINOPHEN 5/325 TABLET 1 TAB PO (14:23)
== END 2020-02-21 14:43 | disposition home or self-care (01) ==
PROVIDERS: Emergency Provider Emergency Medicine
DX: K22.10 Ulcer of esophagus without bleeding (principal); R11.10 Vomiting, unspecified; R10.9 Unspecified abdominal pain
CPT/HCPCS: 36415; 80053; 81003; 81015; 83690; 85025; 85610; 85730; 93005; 96361; 96374; 96375; 99284; C9113; J1170; J2405

== ENCOUNTER 2020-02-22 22:37 | Emergency (ER) | payer OTHER, SELFPAY ==
[2020-02-22 22:59] VITALS: BP 140/69; PULSE 75; RESP 15; TEMP 36.6; O2SAT 97; BMI 23.1
--- NOTE | 2020-02-23 00:39 | ED.ABDPAIN ---
HPI - Abdominal Pain General Chief Complaint: Abdominal Pain Stated Complaint: abdominal pain x2 days Time Seen by Provider: 02/22/20 22:48 Source: patient Mode of arrival: Ambulatory Limitations: no limitations History of Present Illness HPI narrative: 29M smoker with extensive recent history of epigastric pain presents with his significant other and chief complaint of 2 days of epigastric pain and burning. He has had multiple visits recently with multiple CT scans, ultrasounds a HIDA scan and even a recent EGD. The EGD noted a small esophageal ulcer and likely some gastritis. He has been taking omeprazole twice daily and avoiding alcohol and nicotine. He denies any nausea, vomiting or diarrhea. He denies any fever or chills. His pain is made worse with eating and drinking and seems to be a bit worse at night. MD complaint: abdominal pain Onset (ago): day(s) Pain Consistency: constant Location: epigastric Severity: moderate Quality: aching and burning Radiation: none Associated symptoms: nausea Related Data Previous Rx's Medication Instructions Recorded dicyclomine 20 mg PO QID PRN #20 tab 02/08/20 ondansetron HCl 4 mg tablet 4 mg PO Q6H PRN #15 tab 02/11/20 omeprazole 20 mg PO BID #120 cap 02/19/20 omeprazole 20 mg PO BID #60 cap 02/21/20 oxycodone-acetaminophen [Percocet] 1 tab PO Q6-8H PRN #6 tab 02/21/20 sucralfate [Carafate] 1 gram PO BID #30 tab 02/23/20 Allergies Allergy/AdvReac Type Severity Reaction Status Date / Time No Known Drug Allergies Allergy Verified 02/11/20 11:22 Review of Systems Constitutional Constitutional: Denies chills, Denies fatigue, Denies fever(s), Denies frequent falls, Denies lethargy and Denies weakness Eyes Eyes: Denies change in vision, Denies eye discharge, Denies irritation and Denies loss of vision ENT Ears, Nose, Mouth, and Throat: Denies change in voice, Denies dizziness, Denies neck pain, Denies sore throat and Denies throat swelling Cardiovascular Cardiovascular: Denies chest pain, Denies irregular heart rhythm, Denies lightheadedness, Denies palpitations, Denies dyspnea, Denies dyspnea on exertion and Denies orthopnea Respiratory Respiratory: Denies cough, Denies dyspnea, Denies dyspnea on exertion and Denies wheezing Gastrointestinal Gastrointestinal: Reports abdominal pain, Denies change in bowel habits, Denies diarrhea, Reports nausea and Denies vomiting Musculoskeletal Musculoskeletal: Denies neck pain and Denies numbness Integumentary/Breasts Skin/Breast: Denies pruritus, Denies erythema, Denies rash and Denies wounds Neurologic Neurologic: Denies behavioral changes, Denies confusion, Denies dizziness, Denies frequent falls, Denies loss of vision, Denies numbness and Denies weakness Psychiatric Psychiatric: Denies anxiety, Denies behavioral changes, Denies confusion, Denies depression, Denies homicidal ideation and Denies suicidal ideation Endocrine Endocrine: Denies fatigue, Denies flushing and Denies palpitations Hematologic/Lymphatic Hematologic/Lymphatic: Denies easy bruising Allergic/Immunologic Allergic/Immunologic: Denies urticaria, Denies throat swelling and Denies wheezing Patient History Medical History Esophageal ulcer (Acute) Gastritis (Acute) Healthy adult (Acute) Normal colonoscopy (Acute) Surgical History History of esophagogastroduodenoscopy (EGD) (Acute) No pertinent past surgical history (Acute) Social History household members: spouse and family Smoking Status: Current every day smoker Smoking Status: Current every day smoker alcohol intake frequency: 0-2 drinks per day Substance Use Type: does not use Exam Narrative Exam Narrative: GENERAL: [29] year old patient appears stated age. Well-nourished, well-developed patient, in mild distress. HEAD: Atraumatic. Normocephalic. EYES: Pupils equal round and reactive. Extraocular motions intact. No scleral icterus. No injection or drainage. ENT: Nose without bleeding, purulent drainage. Throat without erythema, tonsillar hypertrophy or exudate. Airway patent. NECK: Trachea midline. Non tender CARDIOVASCULAR: Regular rate and rhythm without murmurs, gallops, or rubs. RESPIRATORY: Clear to auscultation. Breath sounds equal bilaterally. No wheezes, rales, or rhonchi. GASTROINTESTINAL: Abdomen soft, tender in the epigastrium, nondistended. EXTREMITIES: No edema or joint tenderness. BACK: Nontender without deformity or crepitance. No flank tenderness. NEURO: AOx3. SKIN: No rash or erythema of visible areas Initial Vital Signs Initial Vital Signs: Vital Signs Temperature 97.9 F 02/22/20 22:59 Pulse Rate 75 02/22/20 22:59 Respiratory Rate 15 02/22/20 22:59 Blood Pressure 140/69 02/22/20 22:59 Pulse Oximetry 97 02/22/20 22:59 Course Course Course Narrative: Patient requesting pain medications. I spent of significant amount of time at the bedside discussing the multiple recent in-depth workups and frequent pain medications. I told him that we would treat his epigastric pain with a GI cocktail and if his labs are abnormal we would consider further imaging but without objective findings there would be no further use of opioid pain medications. I called on-call surgery, Dr. Gipson, and discussed this case. In the end we discussed possibly adding Carafate, and certainly following up closely, with his doctors Orders Ordered: ED Orders 02/23/20 01:17 Complete Blood Count AUTO DIFF Stat Comprehensive Metabolic Panel Stat Discontinued Medications Al Hydrox/Mg Hydrox/Simethicone 20 ml/ Lidocaine HCl 15 ml 0 ml PO NOW ONE Stop: 02/23/20 00:52 Last Admin: 02/23/20 01:07 Dose: 35 ml Documented by: CINDY Vital Signs Vital signs: Vital Signs - 8 hr 02/22/20 22:59 Temperature 97.9 F Pulse Rate 75 Respiratory Rate 15 Blood Pressure 140/69 Pulse Oximetry 97 MDM - Abdominal Pain Lab Data Result diagrams: 02/23/20 01:17 02/23/20 01:17 Labs: Lab Results 02/23/20 02/23/20 Range/Units 01:17 01:17 WBC 10.7 (4.5-11.0) X10^3/uL RBC 4.26 L (4.5-5.9) X10^6/uL Hgb 13.3 L (13.5-17.5) g/dL Hct 38.9 L (41-53) % MCV 91.4 (80-100) fL MCH 31.1 (26-34) PG MCHC 34.1 (30-36) % RDW 12.7 (11.6-14.8) % Plt Count 173 (150-400) X10^3/uL Neut % (Auto) 75.7 H (50-75) % Lymph % (Auto) 16.5 L (25-40) % Isabel[place] % (Auto) 5.4 (3-14) % Eos % (Auto) 2.2 (2-4) % Baso % (Auto) 0.2 (0-2) % Neut # (Auto) 8100 H (3411-3954) /uL Lymph # (Auto) 1800 (8765-8643) /uL Isabela # (Auto) 600 (0-900) /uL Eos # (Auto) 200 (0-450) /uL Baso # (Auto) 0 (0-100) /uL Sodium 136 L (137-145) mmol/L Potassium 4.1 (3.4-5.1) mmol/L Chloride 102 (98-107) mmol/L Carbon Dioxide 26 (22-32) mmol/L BUN 14 (9-20) mg/dL Creatinine 0.89 (0.66-1.25) mg/dL Estimated GFR > 60.0 (>60) mL/min BUN/Creatinine Ratio 15.7 (6-22) Glucose 92 (70-100) mg/dL Calcium 9.5 (8.4-10.2) mg/dL Total Bilirubin 1.1 (0.2-1.3) mg/dL AST 20 (17-59) IU/L ALT 20 (<50) IU/L Alkaline Phosphatase 49 (38-126) U/L Total Protein 6.9 (6.3-8.2) g/dL Albumin 4.6 (3.5-5.0) g/dL Globulin 2.3 (1.7-4.1) g/dL Albumin/Globulin Ratio 2.0 (1.0-2.8) Discharge Plan Departure Patient Disposition: Home Clinical Impression: Esophageal ulcer Qualifiers: Esophageal ulcer bleeding: without bleeding Qualified Code(s): K22.10 - Ulcer of esophagus without bleeding Abdominal pain Qualifiers: Abdominal location: epigastric Qualified Code(s): R10.13 - Epigastric pain Gastritis Qualifiers: Gastritis type: unspecified gastritis Chronicity: acute Gastritis bleeding: without bleeding Qualified Code(s): K29.00 - Acute gastritis without bleeding Instructions: [place] Diet, DI for Esophageal Ulcer Activity Restrictions/Additional Instructions: 1. Drink plenty of fluids with frequent small sips. Avoid alcohol, nicotine, significant amounts of caffeine, fatty foods and spicy foods. 2. For the next 24 hours a clear liquid diet is advised. After that please employ a brat diet which would include bananas, rice, apples, toast. 3. Please take medications as directed. Prescription sent to [facility] 4. Please follow-up with your doctor in the next 1-2 days. Call the office for an appointment. 5. Please return to the emergency Department for any worsening or persistent symptoms, such as increasing pain or fever. Prescriptions: New sucralfate [Carafate] 1 gram tablet 1 gram PO BID Qty: 30 RF: 0 No Action ondansetron HCl [Zofran] 4 mg tablet 4 mg PO Q6H PRN (Reason: nausea and vomiting) Qty: 15 RF: 0 oxycodone-acetaminophen [Percocet] 5-325 mg tablet 1 tab PO Q6-8H PRN (Reason: pain) Qty: 6 RF: 0 omeprazole 20 mg capsule,delayed release(DR/EC) 20 mg PO BID Qty: 60 RF: 0 dicyclomine 20 mg tablet 20 mg PO QID PRN (Reason: abdominal pain,cramps discomfort) Qty: 20 RF: 0 omeprazole 20 mg capsule,delayed release(DR/EC) 20 mg PO BID Qty: 120 RF: 2
[2020-02-23] MEDS: MAG HYDROX/ALUMINUM/SIMETH SUS 20 ML, LIDOCAINE VISCOUS 2% 15 ML PO (01:07)
[2020-02-23 01:38] LABS: Add Manual Diff / Slide Review NO; Basophils Absolute Auto 0 /uL (0-100); Basophils Percent Auto 0.2 % (0-2); Eosinophils Absolute Auto 200 /uL (0-450); Eosinophils Percent Auto 2.2 % (2-4); Hematocrit 38.9 % (41-53); Hemoglobin 13.3 g/dL (13.5-17.5); Lymphocytes Absolute Auto 1800 /uL (1100-4500); Lymphocytes Percent Auto 16.5 % (25-40); Mean Corpuscular HGB Conc 34.1 % (30-36); Mean Corpuscular Hemoglobin 31.1 PG (26-34); Mean Corpuscular Volume 91.4 fL (80-100); Monocytes Absolute Auto 600 /uL (0-900); Monocytes Percent Auto 5.4 % (3-14); Neutrophils Absolute Auto 8100 /uL (1500-7000); Neutrophils Percent Auto 75.7 % (50-75); Platelet Count 173 X10^3/uL (150-400); Red Blood Cell Count 4.26 X10^6/uL (4.5-5.9); Red Cell Distribution Width 12.7 % (11.6-14.8); White Blood Cell Count 10.7 X10^3/uL (4.5-11.0)
[2020-02-23 01:45] LABS: Alanine Aminotransferase 20 IU/L (<50); Albumin 4.6 g/dL (3.5-5.0); Alkaline Phosphatase 49 U/L (38-126); Aspartate Aminotransferase 20 IU/L (17-59); BUN Creatinine Ratio 15.7 (6-22); Bilirubin Total 1.1 mg/dL (0.2-1.3); Blood Urea Nitrogen 14 mg/dL (9-20); Calcium 9.5 mg/dL (8.4-10.2); Carbon Dioxide 26 mmol/L (22-32); Chloride 102 mmol/L (98-107); Estimated Glomerular Filt Rate > 60.0 mL/min (>60); Globulin 2.3 g/dL (1.7-4.1); Glucose 92 mg/dL (70-100); HEMOLYSIS < 15 (0-50); Potassium 4.1 mmol/L (3.4-5.1); Sodium 136 mmol/L (137-145); Total Protein 6.9 g/dL (6.3-8.2)
[2020-02-23 02:19] VITALS: BP 114/66; PULSE 78; O2SAT 97
== END 2020-02-23 02:22 | disposition home or self-care (01) ==
PROVIDERS: Emergency Provider Emergency Medicine
DX: K22.10 Ulcer of esophagus without bleeding (principal); R10.13 Epigastric pain; K29.00 Acute gastritis without bleeding; R11.0 Nausea
CPT/HCPCS: 36415; 80053; 85025; 99283; 99284

== ENCOUNTER 2021-12-19 13:45 | Emergency (ER) | payer OTHER, SELFPAY ==
[2021-12-19 14:16] VITALS: BP 121/56; PULSE 94; RESP 18; TEMP 36.8; O2SAT 98; BMI 20.7
[2021-12-19 15:05] LABS: Add Manual Diff / Slide Review NO; Basophils Absolute Auto 0 /uL (0-100); Basophils Percent Auto 0.4 % (0-2); Eosinophils Absolute Auto 200 /uL (0-450); Eosinophils Percent Auto 1.8 % (2-4); Hematocrit 40.9 % (41-53); Hemoglobin 14.1 g/dL (13.5-17.5); Lymphocytes Absolute Auto 1600 /uL (1100-4500); Lymphocytes Percent Auto 17.2 % (25-40); Mean Corpuscular HGB Conc 34.4 % (30-36); Mean Corpuscular Hemoglobin 30.3 PG (26-34); Monocytes Absolute Auto 400 /uL (0-900); Monocytes Percent Auto 4.1 % (3-14); Neutrophils Absolute Auto 7000 /uL (1500-7000); Neutrophils Percent Auto 76.5 % (50-75); Platelet Count 200 X10^3/uL (150-400); Red Blood Cell Count 4.64 X10^6/uL (4.5-5.9); Red Cell Distribution Width 13.8 % (11.6-14.8); White Blood Cell Count 9.1 X10^3/uL (4.5-11.0)
[2021-12-19 15:14] LABS: Alanine Aminotransferase 25 IU/L (<50); Albumin 4.8 g/dL (3.5-5.0); Albumin Globulin Ratio 1.7 (1.0-2.8); Alkaline Phosphatase 52 U/L (38-126); Aspartate Aminotransferase 22 IU/L (17-59); Bilirubin Total 0.4 mg/dL (0.2-1.3); Blood Urea Nitrogen 15 mg/dL (9-20); Calcium 9.5 mg/dL (8.4-10.2); Carbon Dioxide 28 mmol/L (22-32); Chloride 103 mmol/L (98-107); Estimated Glomerular Filt Rate > 60 mL/min (>60); Globulin 2.8 g/dL (1.7-4.1); Glucose 89 mg/dL (70-100); HEMOLYSIS < 15 (0-50); Lipase 97 U/L (23-300); Potassium 4.4 mmol/L (3.4-5.1); Sodium 138 mmol/L (137-145); Total Protein 7.6 g/dL (6.3-8.2)
[2021-12-19 16:48] VITALS: BP 118/73; PULSE 78; RESP 18; O2SAT 98
--- NOTE | 2022-01-02 11:38 | ED.ABDPAIN ---
HPI - Abdominal Pain <Matt Burns PA-C - Last Filed: 01/02/22 11:48> General Chief Complaint: Abdominal Pain Stated Complaint: Vomiting,Intestinal Issues Time Seen by Provider: 12/19/21 14:50 Source: patient Mode of arrival: Ambulatory History of Present Illness HPI narrative: 31-year-old male with past medical history esophageal ulcer presents to the ED with 5 days of nausea, vomiting, abdominal pain, diarrhea. Patient denies fever, chills, chest pain, shortness of breath, flank pain, dysuria, lightheadedness, dizziness, syncope. Patient states that he might have eaten some bad sushi just prior to the onset of his symptoms. Related Data Previous Rx's Medication Instructions Recorded dicyclomine 20 mg tablet 20 mg PO QID PRN abdominal 02/08/20 pain,cramps discomfort #20 tabs ondansetron HCl 4 mg tablet 4 mg PO Q6H PRN nausea and 02/11/20 (Zofran) vomiting #15 tabs omeprazole 20 mg capsule,delayed 20 mg PO BID Esophageal 02/19/20 release ulcer/gastritis #120 caps omeprazole 20 mg capsule,delayed 20 mg PO BID #60 caps 02/21/20 release oxycodone-acetaminophen 5 mg-325 1 tab PO Q6-8H PRN pain #6 tabs 02/21/20 mg tablet (Percocet) sucralfate 1 gram tablet (Carafate) 1 gram PO BID #30 tabs 02/23/20 Allergies Allergy/AdvReac Type Severity Reaction Status Date / Time No Known Drug Allergies Allergy Verified 02/11/20 11:22 Review of Systems <Matt Burns PA-C - Last Filed: 01/02/22 11:48> Review of Systems ROS Unobtainable: All systems reviewed & are unremarkable except as noted in HPI and below Constitutional Constitutional: Denies chills, Denies fatigue, Denies fever(s), Denies frequent falls, Denies lethargy and Denies weakness Eyes Eyes: Denies change in vision, Denies eye discharge, Denies irritation and Denies loss of vision ENT Ears, Nose, Mouth, and Throat: Denies change in voice, Denies dizziness, Denies neck pain, Denies sore throat and Denies throat swelling Cardiovascular Cardiovascular: Denies chest pain, Denies irregular heart rhythm, Denies lightheadedness, Denies palpitations, Denies dyspnea, Denies dyspnea on exertion and Denies orthopnea Respiratory Respiratory: Denies cough, Denies dyspnea, Denies dyspnea on exertion and Denies wheezing Gastrointestinal Gastrointestinal: Reports abdominal pain, Denies change in bowel habits, Reports diarrhea, Reports nausea and Reports vomiting Genitourinary Genitourinary: Denies hematuria, Denies flank pain, Denies urinary incontinence and Denies urinary urgency Musculoskeletal Musculoskeletal: Denies back pain, Denies muscle weakness, Denies neck pain, Denies numbness and Denies tingling Integumentary/Breasts Skin/Breast: Denies pruritus, Denies erythema, Denies rash and Denies wounds Neurologic Neurologic: Denies behavioral changes, Denies confusion, Denies dizziness, Denies frequent falls, Denies loss of vision, Denies numbness, Denies tingling and Denies weakness Psychiatric Psychiatric: Denies anxiety, Denies behavioral changes, Denies confusion, Denies depression, Denies homicidal ideation and Denies suicidal ideation Endocrine Endocrine: Denies fatigue, Denies flushing and Denies palpitations Hematologic/Lymphatic Hematologic/Lymphatic: Denies easy bruising Allergic/Immunologic Allergic/Immunologic: Denies urticaria, Denies throat swelling and Denies wheezing Patient History <Matt Burns PA-C - Last Filed: 01/02/22 11:48> Medical History (Updated 01/03/22 @ 00:00 by ) Esophageal ulcer Gastritis Healthy adult Normal colonoscopy Surgical History History of esophagogastroduodenoscopy (EGD) No pertinent past surgical history Social History household members: spouse and family Smoking Status: Current every day smoker Smoking Status: Current every day smoker tobacco type: vaping alcohol intake frequency: 0-2 drinks per day Substance Use Type: does not use Exam <Matt Burns PA-C - Last Filed: 01/02/22 11:48> Narrative Exam Narrative: Const General:?cooperative, healthy appearing and comfortable [facility] Head:?normal to inspection Ears:?hearing grossly normal bilaterally; tympani intact bilaterally Nose:?external nose normal Face and sinus:?normal facial exam and sinuses nontender Mouth:?oral mucosae normal Throat:?posterior oropharynx normal Eyes General:?appearance normal, both eyes and all related structures Neck Neck:?normal visual inspection and no lymphadenopathy noted Resp Effort & Inspection:?normal respiratory effort Auscultation:?clear to auscultation bilaterally Cardio Rate:?regular rate Rhythm:?regular rhythm Gastrointestinal Abdomen is soft, nondistended, nontender to palpation. Neuro General:?patient alert, patient awake and patient oriented x3 Initial Vital Signs Initial Vital Signs: Vital Signs Temperature 98.3 F 12/19/21 14:16 Pulse Rate 94 H 12/19/21 14:16 Respiratory Rate 18 12/19/21 14:16 Blood Pressure 121/56 L 12/19/21 14:16 Pulse Oximetry 98 12/19/21 14:16 Oxygen Delivery Method 12/19/21 14:16 <India Winston DO - Last Filed: 01/23/22 13:40> Initial Vital Signs Initial Vital Signs: Vital Signs Temperature 98.3 F 12/19/21 14:16 Pulse Rate 94 H 12/19/21 14:16 Respiratory Rate 18 12/19/21 14:16 Blood Pressure 121/56 L 12/19/21 14:16 Pulse Oximetry 98 12/19/21 14:16 Oxygen Delivery Method 12/19/21 14:16 MDM - Abdominal Pain <Matt Burns PA-C - Last Filed: 01/02/22 11:48> Lab Data Lab results narrative: Labs within normal limits Result diagrams: 12/19/21 14:45 12/19/21 14:45 Labs: Lab Results 12/19/21 12/19/21 Range/Units 14:45 14:45 WBC 9.1 (4.5-11.0) X10^3/uL RBC 4.64 (4.5-5.9) X10^6/uL Hgb 14.1 (13.5-17.5) g/dL Hct 40.9 L (41-53) % MCV 88.0 (80-100) fL MCH 30.3 (26-34) PG MCHC 34.4 (30-36) % RDW 13.8 (11.6-14.8) % Plt Count 200 (150-400) X10^3/uL Neut % (Auto) 76.5 H (50-75) % Lymph % (Auto) 17.2 L (25-40) % [place] % (Auto) 4.1 (3-14) % Eos % (Auto) 1.8 L (2-4) % Baso % (Auto) 0.4 (0-2) % Neut # (Auto) 7000 (8334-8201) /uL Lymph # (Auto) 1600 (6979-4970) /uL [place] # (Auto) 400 (0-900) /uL Eos # (Auto) 200 (0-450) /uL Baso # (Auto) 0 (0-100) /uL Sodium 138 (137-145) mmol/L Potassium 4.4 (3.4-5.1) mmol/L Chloride 103 (98-107) mmol/L Carbon Dioxide 28 (22-32) mmol/L BUN 15 (9-20) mg/dL Creatinine 0.75 (0.66-1.25) mg/dL Estimated GFR > 60 (>60) mL/min BUN/Creatinine Ratio 20.0 (6-22) Glucose 89 (70-100) mg/dL Calcium 9.5 (8.4-10.2) mg/dL Total Bilirubin 0.4 (0.2-1.3) mg/dL AST 22 (17-59) IU/L ALT 25 (<50) IU/L Alkaline Phosphatase 52 (38-126) U/L Total Protein 7.6 (6.3-8.2) g/dL Albumin 4.8 (3.5-5.0) g/dL Globulin 2.8 (1.7-4.1) g/dL Albumin/Globulin Ratio 1.7 (1.0-2.8) Lipase 97 (23-300) U/L [facility] Narrative Medical decision making narrative: 31-year-old male with past medical history esophageal ulcer presents to the ED with 5 days of nausea, vomiting, abdominal pain, diarrhea. Physical exam reassuring for no tenderness on palpation. Patient's symptoms likely due to gastroenteritis. Brat diet discussed with patient. Recommend good hydration. ED precautions discussed with patient. Patient verbalized understanding. <India Winston, DO - Last Filed: 01/23/22 13:40> Lab Data Labs: Lab Results 12/19/21 12/19/21 Range/Units 14:45 14:45 WBC 9.1 (4.5-11.0) X10^3/uL RBC 4.64 (4.5-5.9) X10^6/uL Hgb 14.1 (13.5-17.5) g/dL Hct 40.9 L (41-53) % MCV 88.0 (80-100) fL MCH 30.3 (26-34) PG MCHC 34.4 (30-36) % RDW 13.8 (11.6-14.8) % Plt Count 200 (150-400) X10^3/uL Neut % (Auto) 76.5 H (50-75) % Lymph % (Auto) 17.2 L (25-40) % [place] % (Auto) 4.1 (3-14) % Eos % (Auto) 1.8 L (2-4) % Baso % (Auto) 0.4 (0-2) % Neut # (Auto) 7000 (4206-9143) /uL Lymph # (Auto) 1600 (6065-2706) /uL [place] # (Auto) 400 (0-900) /uL Eos # (Auto) 200 (0-450) /uL Baso # (Auto) 0 (0-100) /uL Sodium 138 (137-145) mmol/L Potassium 4.4 (3.4-5.1) mmol/L Chloride 103 (98-107) mmol/L Carbon Dioxide 28 (22-32) mmol/L BUN 15 (9-20) mg/dL Creatinine 0.75 (0.66-1.25) mg/dL Estimated GFR > 60 (>60) mL/min BUN/Creatinine Ratio 20.0 (6-22) Glucose 89 (70-100) mg/dL Calcium 9.5 (8.4-10.2) mg/dL Total Bilirubin 0.4 (0.2-1.3) mg/dL AST 22 (17-59) IU/L ALT 25 (<50) IU/L Alkaline Phosphatase 52 (38-126) U/L Total Protein 7.6 (6.3-8.2) g/dL Albumin 4.8 (3.5-5.0) g/dL Globulin 2.8 (1.7-4.1) g/dL Albumin/Globulin Ratio 1.7 (1.0-2.8) Lipase 97 (23-300) U/L Discharge Plan Departure Patient Disposition: Home Clinical Impression: Gastroenteritis Instructions: DI for Viral Gastroenteritis -- Adult Activity Restrictions/Additional Instructions: You were evaluated in the ED today for abdominal pain, vomiting, diarrhea. Your physical exam was reassuring and your labs were normal. Your symptoms are likely due to food poisoning or gastroenteritis. You can expect to have continued diarrhea for the next few days. Please stay hydrated, you may follow the BRAT diet which consists of bananas, rice, apples, toast to help with the diarrhea. Return to the ED if you have uncontrollable nausea, vomiting, you are unable to keep down liquids, you have a fever. Prescriptions: No Action ondansetron HCl [Zofran] 4 mg tablet 4 mg PO Q6H PRN (Reason: nausea and vomiting) Qty: 15 0RF Rx Instructions: take 1-2 tablets every 6 hours as needed for nausea and vomiting oxycodone-acetaminophen [Percocet] 5-325 mg tablet 1 tab PO Q6-8H PRN (Reason: pain) Qty: 6 0RF omeprazole 20 mg capsule,delayed release(DR/EC) 20 mg PO BID Qty: 60 0RF dicyclomine 20 mg tablet 20 mg PO QID PRN (Reason: abdominal pain,cramps discomfort) Qty: 20 0RF omeprazole 20 mg capsule,delayed release(DR/EC) 20 mg PO BID Qty: 120 2RF sucralfate [Carafate] 1 gram tablet 1 gram PO BID Qty: 30 0RF Referrals: Miscellaneous,Doctor, MD [Primary Care Provider] - Visit Report Forms: Patient Portal/API <India Winston DO - Last Filed: 01/23/22 13:40> Cosign ED Attending Frankyature Attestation: I was immediately available in the department for consultation. Documentation has been reviewed.
== END 2021-12-19 16:49 | disposition home or self-care (01) ==
PROVIDERS: Emergency Medicine; Emergency Provider Student in an Organized Health Care Education/Training Program
DX: K52.9 Noninfective gastroenteritis and colitis, unspecified (principal); R10.9 Unspecified abdominal pain
CPT/HCPCS: 36415; 80053; 83690; 85025; 99283